=== PATIENT | female | born 1990 | race Caucasian/White ===

== ENCOUNTER 2019-10-04 22:31 | Emergency (ER) | payer MEDICAID ==
[2019-10-04] MEDS ORDERED: IBUPROFEN 400 MG TAB ONE (23:16)
[2019-10-04] MEDS ORDERED: IBUPROFEN 200 MG TAB PO ONE (23:16)
--- NOTE | 2019-10-04 23:25 | EDPHYS ---
Physician Documentation [facility] Name: Cleopatra Gomez Age: 29 yrs Sex: Female : 1990 Arrival Date: 10/04/2019 Time: 22:34 Bed 6 Private MD: ED Physician Alexx Martinez HPI: 10/03 22:48 This 29 yrs old Female presents to ER via Unassigned with complaints of Knee la1 Injury. 22:48 Onset: The symptoms/episode began/occurred just prior to arrival. The patient has not la1 experienced similar symptoms in the past. The patient has not recently seen a physician. pt had a injury to the left knee. Historical: - Allergies: 22:53 No Known Allergies; ea - Home Meds: 22:53 levothyroxine oral [Active]; Metformin Oral [Active]; ea - PMHx: 22:53 Osteogenisis Imperfecta; Diabetes - NIDDM; ea - PSHx: 22:53 Right knee surgery; ea - Immunization history:: Adult Immunizations up to date. - Social history:: Smoking status: Patient denies any tobacco usage or history of. ROS: 23:01 Constitutional: Negative for fever, chills, and weight loss, Eyes: Negative for injury, la1 pain, redness, and discharge, ENT: Negative for injury, pain, and discharge, Neck: Negative for injury, pain, and swelling, Cardiovascular: Negative for chest pain, palpitations, and edema, Respiratory: Negative for shortness of breath, cough, wheezing, and pleuritic chest pain, Abdomen/GI: Negative for abdominal pain, nausea, vomiting, diarrhea, and constipation, Back: Negative for injury and pain, Skin: Negative for injury, rash, and discoloration. 23:01 MS/extremity: Positive for pain, of the left knee. Exam: 23:01 Constitutional: This is a well developed, well nourished patient who is awake, alert, la1 and in no acute distress. Head/Face: Normocephalic, atraumatic. Cardiovascular: No pulse deficits. Respiratory: No increased work of breathing, Back: No spinal tenderness. No costovertebral tenderness. Full range of motion. Skin: Warm, dry with normal turgor. Normal color with no rashes, no lesions, and no evidence of cellulitis. MS/ Extremity: Pulses equal, no cyanosis. Neurovascular intact. Full, normal range of motion. Vital Signs: 22:47 BP 142 / 89; Pulse 110; Resp 18; Temp 97.6; Pulse Ox 98% on R/A; Weight 105.69 kg; ea Height 4 ft. 11 in. (149.86 cm); Pain 9/10; 23:33 BP 117 / 68; Pulse 87; Resp 18; Pulse Ox 100% on R/A; ea 22:47 Body Mass Index 47.06 (105.69 kg, 149.86 cm) ea MDM: 22:39 Patient medically screened. la1 23:23 Data reviewed: vital signs, nurses notes, radiologic studies, and as a result, I will la1 discharge patient. Test interpretation: by ED physician or midlevel provider: plain radiologic studies, no obvious fracture or dislocation, not applicable, none. Counseling: I had a detailed discussion with the patient and/or guardian regarding: the historical points, exam findings, and any diagnostic results supporting the discharge/admit diagnosis, radiology results, the need for outpatient follow up, a orthopedic surgeon, to return to the emergency department if symptoms worsen or persist or if there are any questions or concerns that arise at home. Special discussion: Based on the history and exam findings, there is no indication for further emergent testing or inpatient evaluation. I discussed with the patient/guardian the need to see the orthopedic surgeon for further evaluation of the symptoms. 10/03 22:45 Order name: Knee Left 3 View XRAY la1 10/03 23:25 Order name: Patrick wrap-joint; Complete Time: 23:46 la1 Administered Medications: 23:22 Drug: Motrin 600 mg Route: PO; ea 23:46 Follow up: Response: No adverse reaction ea Disposition: 10/04 06:54 Co-signature as Attending Physician, Alexx Martinez MD I agree with the assessment and tw4 plan of care. Disposition: 10/04/19 23:24 Discharged to Home. Impression: Pain in left knee. - Condition is Stable. - Discharge Instructions: Joint Pain, Musculoskeletal Pain, RICE for Routine Care of Injuries, Knee Pain. - Medication Reconciliation Form, Thank You Letter form. - Follow up: Private Physician; When: 2 - 3 days; Reason: Recheck today's complaints, Re-evaluation by your physician. - Problem is new. - Symptoms are unchanged. Signatures: Dispatcher [employer] EDToño Griffin, LIBRARY HISTORIAN-C LIBRARY HISTORIAN-Cla1 Dea Howell, RN RN Alexx Aguirre MD MD tw4 Corrections: (The following items were deleted from the chart) 10/03 23:48 23:24 10/04/2019 23:24 Discharged to Home. Impression: Pain in left knee. Condition is ea Stable. Forms are Medication Reconciliation Form, Thank You Letter, Antibiotic Education, Prescription Opioid Use. Follow up: Private Physician; When: 2 - 3 days; Reason: Recheck today's complaints, Re-evaluation by your physician. Problem is new. Symptoms are unchanged. la1
--- NOTE | 2019-10-04 23:25 | ER ---
Nurse's Notes [facility] Name: Cleopatra Gomez Age: 29 yrs Sex: Female : 1990 Arrival Date: 10/04/2019 Time: 22:34 Bed 6 Private MD: Diagnosis: Pain in left knee Presentation: 10/03 22:47 Chief complaint: Patient states: Pt reports she was taking care of her niece, slipped ea on some toys on the floor and fell onto her left knee. Pt reports it is painful when she puts weight on it. Coronavirus screen: The patient has NOT traveled to a country currently being monitored by the [facility] within the last 14 days. Ebola Screen: No symptoms or risks identified at this time. Initial Sepsis Screen: Does the patient meet any 2 criteria? HR > 90 bpm. Does the patient have a suspected source of infection? No. Patient's initial sepsis screen is negative. Risk Assessment: Do you want to hurt yourself or someone else? Patient reports no desire to harm self or others. 22:47 Method Of Arrival: Ambulatory ea 22:47 Acuity: MODESTO 4 ea Triage Assessment: 22:54 General: Appears in no apparent distress. Behavior is appropriate for age. Pain: ea Complains of pain in left knee. Neuro: Level of Consciousness is awake, alert, obeys commands, Oriented to person, place, time, situation. Respiratory: Airway is patent Respiratory effort is even, unlabored, Respiratory pattern is regular, symmetrical. Musculoskeletal: Circulation, motion, and sensation intact. Historical: - Allergies: 22:53 No Known Allergies; ea - Home Meds: 22:53 levothyroxine oral [Active]; Metformin Oral [Active]; ea - PMHx: 22:53 Osteogenisis Imperfecta; Diabetes - NIDDM; ea - PSHx: 22:53 Right knee surgery; ea - Immunization history:: Adult Immunizations up to date. - Social history:: Smoking status: Patient denies any tobacco usage or history of. Screenin:51 Abuse screen: Denies threats or abuse. Nutritional screening: No deficits noted. ea Tuberculosis screening: No symptoms or risk factors identified. Fall Risk None identified. Assessment: 23:32 Reassessment: Reassessment: Patient and/or family updated on plan of care and expected ea duration. Pain level reassessed. Patient is alert, oriented x 3, equal unlabored respirations, skin warm/dry/pink. 23:47 Reassessment: Patient and/or family updated on plan of care and expected duration. Pain ea level reassessed. Patient is alert, oriented x 3, equal unlabored respirations, skin warm/dry/pink. Discharge instruction given to patient, verbalized the understanding of instruction. Pt left ED, pt tolerating well. Vital Signs: 22:47 BP 142 / 89; Pulse 110; Resp 18; Temp 97.6; Pulse Ox 98% on R/A; Weight 105.69 kg; ea Height 4 ft. 11 in. (149.86 cm); Pain 9/10; 23:33 BP 117 / 68; Pulse 87; Resp 18; Pulse Ox 100% on R/A; ea 22:47 Body Mass Index 47.06 (105.69 kg, 149.86 cm) ea ED Course: 22:34 Patient arrived in ED. es 22:35 Toño Ochoa FNP-C is [facility]. la1 22:35 Alexx Martinez MD is Attending Physician. la1 22:40 Dea Howell RN is Primary Nurse. ea 22:51 Triage completed. ea 22:51 Arm band placed on right wrist. Patient placed in an exam room, on a stretcher, on ea pulse oximetry. 22:51 Patient has correct armband on for positive identification. Bed in low position. Call ea light in reach. Side rails up X 1. 23:17 Knee Left 3 View XRAY In Process Unspecified. EDMS 23:32 No provider procedures requiring assistance completed. Patient did not have IV access ea during this emergency room visit. Administered Medications: 23:22 Drug: Motrin 600 mg Route: PO; ea 23:46 Follow up: Response: No adverse reaction ea Outcome: 23:24 Discharge ordered by . la1 23:46 Discharged to home ambulatory. ea 23:46 Condition: stable 23:46 Discharge instructions given to patient, Instructed on discharge instructions, follow up and referral plans. Demonstrated understanding of instructions, follow-up care. 23:48 Patient left the ED. ea Signatures: Dispatcher [employer] EDID Kimmy Atkinson Toño Ochoa FNP-C ADOBE CQ DEVELOPER-Cla1 Dea Howell RN RN ea Corrections: (The following items were deleted from the chart) 23:32 22:56 Reassessment: chiara guadarrama
[2019-10-04 23:54] VITALS: TEMP 97.6
[2019-10-04 23:55] VITALS: BP 117/68; O2SAT 100
--- NOTE | 2019-10-05 09:02 | RAD REPORT ---
EXAM DESCRIPTION: RAD - Knee Left 3 View - 10/04/2019 11:19 pm CLINICAL HISTORY: PAIN, slip and fall, knee injury COMPARISON: Knee Left 3 View dated 12/29/2015 FINDINGS: No fracture, dislocation or periosteal reaction.No joint effusion seen. No joint space wai rowing. No soft tissue abnormality. IMPRESSION: No acute bone or joint finding. No significant change seen from the 2016 study. Clinical concerns for internal derangement or occult bony injury could be further assessed with MR im aging.
== END 2019-10-04 23:48 | disposition home or self-care (01) ==
LOC: ER 22:31
DX: M25.562 Pain in left knee (principal); W01.0XXA Fall on same level from slipping, tripping and stumbling without subsequent striking against object, initial encounter; Y93.9 Activity, unspecified; Y92.9 Unspecified place or not applicable; E11.9 Type 2 diabetes mellitus without complications
CPT/HCPCS: 99283

== ENCOUNTER 2019-10-22 19:43 | Emergency (ER) | payer MEDICAID ==
--- OUTSIDE RECORDS SUMMARY | 2019-10-22 19:45 | XMS REPORT ---
:1990 [facility] Address [address] [place] [address] Dr. [address] [place] [address] Care Team Providers Name Role Phone Unavailable Unavailable Unavailable Problems This patient has no known problems. Allergies, Adverse Reactions, Alerts This patient has no known allergies or adverse reactions. Medications This patient has no known medications.
--- OUTSIDE RECORDS SUMMARY | 2019-10-22 19:46 | XMS REPORT | Summary of Care ---
:1990 Author Organization [facility] Address [address] [place] [id number] Care Team Providers Name Role Phone Toño Ochoa Primary Care Provider Milagros Guillory RN Unavailable Unavailable Kale Valenzuela MD Unavailable Reason for Referral Radiology Services (Routine) Status Reason Specialty Diagnoses / Referred By Referred To Procedures Contact Contact New Request Diagnostic Diagnoses Closed fracture of proximal radius/ulna, left, initial encounter Kale Valenzuela Radiology Procedures XR WRIST <3 VW LEFT MD Deann [address] [place] [address] [place] [address] Reason for Visit Reason Comments Follow-up 1 week follow up visit closed fx of proximal radius/ulna left DOI: Encounter Details Date Type Department Care Team Description 09/22/2019 Office Visit [facility] Orthopaedic Hollis Matthew S, Closed fracture of Surgery- [place] [facility] proximal radius/ulna, [address], initial [address] [place] [address] encounter (Primary Dx) [place] [address] [place], [place] [phone] Allergies No Known Allergiesdocumented as of this encounter (statuses as of 09/23/2019) Medications Medication Sig Dispensed Refills Start Date End Date Status levothyroxine 50 mcg Take 50 mcg by 0 Active tablet mouth every morning. metformin ER 500 mg 24 Take 500 mg by 0 Active hr tablet mouth daily with breakfast. escitalopram oxalate 5 Take 5 mg by 0 Active mg tablet mouth daily. acetaminophen-codeine Take 1 tablet 20 tablet 0 10/10/2017 Active (TYLENOL-CODEINE #3) by mouth every 300-30 mg tablet 4 (four) hours as needed for Pain (scale 4-6). acetaminophen 325 mg Take 325 mg by 0 Active tablet mouth. ibuprofen 200 mg tablet Take 200 mg by 0 Active mouth. OXcarbazepine 150 mg 0 09/03/2019 Active tablet levothyroxine 125 mcg Take 125 mcg by 0 07/11/2019 10/09/2019 Active tablet mouth. documented as of this encounter (statuses as of 09/23/2019) Active Problems Problem Noted Date Trauma 10/29/2016 Closed fracture of distal end of right radius 10/29/2016 Morbid obesity with body mass index of 40.0-49.9 10/29/2016 Morbid obesity with body mass index of 50 or higher 10/29/2016 Left leg pain 12/30/2015 Right knee pain 06/11/2015 Right elbow pain 06/11/2015 documented as of this encounter (statuses as of 09/23/2019) Immunizations Name Administration Dates Next Due Influenza Virus Vaccine Quad IM 3+ YRS 10/29/2016 documented as of this encounter Social History Tobacco Use Types Packs/Day Years Used Date Current Some Day Smoker Cigarettes Smokeless Tobacco: Never Used Comments: Occasional Smoker Alcohol Use Drinks/Week oz/Week Comments Yes 0 Standard drinks or equivalent 0.0 Occasional Drinker Sex Assigned at Date Recorded Not on file Job Start Date Occupation Industry Not on file Not on file Not on file Travel History Travel Start Travel End No recent travel history available. 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 Pulse 96 09/22/2019 1:44 PM TIPPLE MECHANIC Temperature - - Respiratory Rate 18 09/22/2019 1:44 PM TIPPLE MECHANIC Oxygen Saturation - - Inhaled Oxygen Concentration - - Weight 95.3 kg (210 lb) 09/22/2019 1:44 PM TIPPLE MECHANIC Height 149.9 cm (4' 11") 09/22/2019 1:44 PM TIPPLE MECHANIC Body Mass Index 42.41 09/22/2019 1:44 PM TIPPLE MECHANIC documented in this encounter Progress Notes Hollis Matthew, PAC - 09/22/2019 1:45 PM CST Cleopatra Gomez is a 29 year old female Chief Complaint Patient presents with Follow-up 1 week follow up visit closed fx of proximal radius/ulna left DOI:09/11/19 Vitals: 09/22/19 1344 BP: (!) 159/77 BP Location: Right arm Patient Position: Sitting BP CUFF SIZE: Adult Medium Pulse: 96 Resp: 18 Weight: 210 lb (95.3 kg) Height: 4' 11" (1.499 m) [employer] [id number] - [place], [place] - [address] [facility] All Vitals taken, allergies and all medications reviewed, fall risk assessed. Pain level 0/10. ZHANNA SOTO MA 09/22/2019 1:49 PM Cleopatra Gomez is a 29 year old female. Here for follow-up on left distal radius fracture she arrived with her sugar tong splint on using her arm sling Here for left wrist injury 09/11/2019 She slipped and landed on her left outstretched hand on the mop floor at home, she was seen at [facility] they placed her in a sugar tong splint she was diagnosed with a radius and ulna fracture. No disc available for review today, she was issued an arm sling which she is not wearing today. Her pain is 8/10 in intensity. She had a previous left wrist fracture that was treated surgically by Dr. Valenzuela. Allergies Cleopatra has No Known Allergies. Medications Outpatient Medications Prior to Visit Medication Sig Dispense Refill acetaminophen 325 mg tablet Take 325 mg by mouth. ibuprofen 200 mg tablet Take 200 mg by mouth. levothyroxine 125 mcg tablet Take 125 mcg by mouth. OXcarbazepine 150 mg tablet acetaminophen-codeine (TYLENOL-CODEINE #3) 300-30 mg tablet Take 1 tablet by mouth every 4 (four) hours as needed for Pain (scale 4-6). 20 tablet 0 escitalopram oxalate 5 mg tablet Take 5 mg by mouth daily. levothyroxine 50 mcg tablet Take 50 mcg by mouth every morning. metformin ER 500 mg 24 hr tablet Take 500 mg by mouth daily with breakfast. Facility-Administered Medications Prior to Visit Medication Dose Route Frequency Provider Last Rate Last Dose sodium chloride 0.9 % irrigation solution PRN Kale Valenzuela MD 1, 000 mL at 09/24/17 0939 Histories Past Medical History: Diagnosis Date Anxiety DM (diabetes mellitus) Left leg pain 12/30/2015 Osteogenesis imperfecta Past Surgical History: Procedure Laterality Date ANKLE HARDWARE REMOVAL Right ANKLE ORIF Right DISTAL RADIUS ORIF Left 09/24/2017 Surgeon: Kale Valenzuela MD; [place] [facility] [place] Social History Socioeconomic History Marital status: Single Spouse name: Not on file Number of children: Not on file Years of education: Not on file Highest education level: Not on file Occupational History Not on file Social Needs Financial resource strain: Not on file Food insecurity: Worry: Not on file Inability: Not on file Transportation needs: Medical: Not on file Non-medical: Not on file Tobacco Use Smoking status: Current Some Day Smoker Types: Cigarettes Smokeless tobacco: Never Used Tobacco comment: Occasional Smoker Substance and Sexual Activity Alcohol use: Yes Alcohol/week: 0.0 standard drinks Comment: Occasional Drinker Drug use: No Sexual activity: Never Lifestyle Physical activity: Days per week: Not on file Minutes per session: Not on file Stress: Not on file Relationships Social connections: Talks on phone: Not on file Gets together: Not on file Attends advent service: Not on file Active member of club or organization: Not on file Attends meetings of clubs or organizations: Not on file Relationship status: Not on file Intimate partner violence: Fear of current or ex partner: Not on file Emotionally abused: Not on file Physically abused: Not on file Forced sexual activity: Not on file Other Topics Concern Not on file Social History Narrative Not on file Family History Problem Relation Age of Onset No Significant Medical Problems NoFHx Review of Systems Constitutional: Negative. HENT: Negative. Eyes: Negative. Respiratory: Negative. Breasts: Negative. Cardiovascular: Negative. Gastrointestinal: Negative. Genitourinary: Negative. Musculoskeletal: Positive for joint swelling. Skin: Negative. Neurological: Negative. Psychiatric/Behavioral: Negative. Endocrine: Endocrine negative Vital Signs Ht 59" (149.9 cm) | Wt 95.3 kg (210 lb) | BMI 42.41 kg/m Physical Exam Musculoskeletal: Physical Exam Constitutional: oriented to person, place, and time. appears well-developed and well-nourished. HENT: Head: Normocephalic and atraumatic. Right Ear: External ear normal. Left Ear: External ear normal. Eyes: Conjunctivae are normal. Neck: Normal range of motion. No strabismus Neck supple. Cardiovascular: Normal rate and regular rhythm. Pulmonary/Chest: Normal respiratory rate equal chest rise and fall in no apparent distress Abdominal: Abdomen nondistended nontender Neurological: alert and oriented to person, place, and time. No asymmetry Skin: Skin is warm and dry. Psychiatric: normal mood and affect. behavior is normal. Judgment and thought content normal. Nursing note and vitals reviewed. Splint removed no deformity, swelling adequately resolved for casting today Assessment/Plan Diagnosis 1. Closed fracture of proximal radius/ulna, left, initial encounter XR WRIST & lt;3 VW LEFT She was placed in a red fiberglass short arm cast by right Tiff GARCÍA she will wear her arm sling for the first 4 weeks and she will follow-up at 6 weeks from the date of fracture. Instructed patient to keep cast dry. Can be cleaned with a damp (not wet) clothe if it becomes dirty. If cast becomes wet use a hand-held dryer on a cool setting careful not to burn themselves. Never put anything into the cast. Objects can break the skin and can cause an infection or the padding can become bunched and form a sore in the area of the skin and can become infected. Wash any skin not covered by your cast with soap and water every day. When your take a bath or shower, securely wrap the cast in plastic so it doesn't get wet. Sponge baths may be necessary if the cast is big. Instructed to call the office if there is severe pain or swelling that doesn't go away with medication, elevation or rest. Come in if there is numbness or "pins and needles" sensation under the cast. An exposed body area around the cast (such as toes or fingers) becomes cold, numb or bluish. Inability to move toes or fingers on the casted side, compared to the other side. Skin irritation or rash around the cast edges. Cast becomes broken, cracked, loose, soft, or melted. If any kind of object gets stuck inside thecast. Plan documented in this encounter Plan of Treatment Date Type Specialty Care Team Description 10/23/2019 Office Visit Orthopedic Surgery Hollis Matthew, PAC [address] [place] [phone] Health Maintenance Due Date Last Done Comments VARICELLA VACCINES (1 of 2 - 2-dose childhood series) 1989 PNEUMOCOCCAL 0-64 YEARS COMBINED SERIES (1 of 1 - 1994 PPSV23) DTaP,Tdap,and Td Vaccines (1 - Tdap) 1999 PAP SMEAR 2009 INFLUENZA VACCINE (#1) 2019 10/29/2016 documented as of this encounter Implants Implanted Type Area Electrical Journeyman Device Shelf Model / Identifier Expiration Date Serial / Lot K-Wire .062 WIRE Left: Wrist Biomet [id number] / Implanted: Qty: 3 on 09/24/2017 by Kale Valenzuela MD at [facility] [id number] / [id number] documented as of this encounter Results XR WRIST <3 VW LEFT (09/22/2019 1:53 PM TIPPLE MECHANIC) Specimen Narrative Performed At Transverse fracture distal radius is in appropriate alignment no volar or PACS dorsal angulation. Performing Organization Address City/State/Zipcode Phone Number PACS documented in this encounter Visit Diagnoses Diagnosis Closed fracture of proximal radius/ulna, left, initial encounter - Primary documented in this encounter Insurance Payer Benefit Plan / Subscriber ID Effective Phone Address Type Group Dates IOANA TRIPLETT xxxxxxxxx 2015-[facility] [address] Medicaid [place] [id number] MANAGED MEDICAID [place], [place] (Work) documented as of this encounter
--- OUTSIDE RECORDS SUMMARY | 2019-10-22 19:46 | XMS REPORT | Summary of Care ---
:1990 Author Organization [facility] Address [address] [place] [address] Care Team Providers Name Role Phone Toño Ochoa Primary Care Provider Milagros Guillory RN Unavailable Unavailable Kale Valenzuela MD Unavailable Reason for Visit Reason Comments Wrist Pain Left wrist injury DOI:09/11/19 Encounter Details Date Type Department Care Team Description 09/12/2019 Office Visit [facility] Orthopaedic Kale Valenzuela MD [address] [place] [place] [address] [place] [address] Closed fracture of Surgery- Hollis Collado S, PAC [address] [place] [address] proximal radius/ulna, [address], initial [address] encounter (Primary Dx) [place] [address] Allergies No Known Allergiesdocumented as of this encounter (statuses as of 09/12/2019) Medications Medication Sig Dispensed Refills Start Date [...] as of this encounter (statuses as of 09/12/2019) Active Problems Problem Noted Date Trauma 10/29/2016 Closed fracture of distal end of right radius 10/29/2016 Morbid obesity with body mass index of 40.0-49.9 10/29/2016 Morbid obesity with body mass index of 50 or higher 10/29/2016 Left leg pain 12/30/2015 Right knee pain 06/11/2015 Right elbow pain 06/11/2015 documented as of this encounter (statuses as of 09/12/2019) Immunizations Name Administration Dates Next Due Influenza [...] Sign Reading Time Taken Comments Blood Pressure 134/84 09/12/2019 10:50 AM DAY CARE CENTER DIRECTOR Pulse 93 09/12/2019 10:50 AM DAY CARE CENTER DIRECTOR Temperature - - Respiratory Rate 18 09/12/2019 10:50 AM DAY CARE CENTER DIRECTOR Oxygen Saturation - - Inhaled Oxygen Concentration - - Weight 95.3 kg (210 lb) 09/12/2019 10:50 AM DAY CARE CENTER DIRECTOR Height 149.9 cm (4' 11") 09/12/2019 10:50 AM DAY CARE CENTER DIRECTOR Body Mass Index 42.41 09/12/2019 10:50 AM DAY CARE CENTER DIRECTOR documented in this encounter Progress Notes Hollis Matthew S, PAC - 09/12/2019 11:00 AM CST Cleopatra Gomez is a 29 year old female Chief Complaint Patient presents with Wrist Pain Left wrist injury DOI:09/11/19 Vitals: 09/12/19 1050 BP: 134/84 BP Location: Left arm Patient Position: Sitting BP CUFF SIZE: Adult Medium Pulse: 93 Resp: 18 Weight: 95.3 kg (210 lb) Height: 59" (149.9 cm) [facility] - [place], [place] - [address] [facility] Incident occurred: 09/11/19 Incident location: home Injury mechanism: patient slipped and fell landing in her arm Pain location: left wrist DME status: wrap Radiology status: [facility] but did not bring xrays was not given any All Vitals taken, allergies and all medications reviewed, fall risk assessed. Pain level 5/10. ZHANNA SOTO MA 09/12/2019 10:55 AM Cleopatra Gomez is a 29 year old female. Here for left wrist injury 09/11/2019 She slipped and landed on her left outstretched hand on the mop floor at home, she was seen at [facility] they placed her in a sugar tong [...] Prior to Visit Medication Sig Dispense Refill levothyroxine 125 mcg tablet Take 125 mcg by mouth. acetaminophen 325 mg tablet Take 325 mg by mouth. ibuprofen 200 mg tablet Take 200 mg by mouth. OXcarbazepine 150 mg tablet acetaminophen-codeine [...] Left 09/24/2017 Surgeon: Kale Valenzuela MD; Location: [facility] Social History Socioeconomic History Marital status: Single [...] file Gets together: Not on file Attends oriental orthodox service: Not on file Active member of [...] Psychiatric/Behavioral: Negative. Endocrine: Endocrine negative Vital Signs BP 134/84 (BP Location: Left arm, Patient Position: Sitting, BP CUFF SIZE: Adult Medium) | Pulse 93 | Resp 18 | Ht 59" (149.9 cm) | Wt 95.3 kg (210 lb) | BMI 42.41 kg/m Physical Exam Physical Exam Constitutional: oriented to person, place, [...] content normal. Nursing note and vitals reviewed. She has a sugar tong splint on her left wrist that is adequately applied neurovascular function intact distally Assessment/Plan Diagnosis 1. Closed fracture of proximal radius/ulna, left, initial encounter Plan Continue sugar tong splint she should wear her arm sling we will follow-up on Sunday at 1:30 they will return with the x-ray disc for us to review at that time. documented in this encounter Plan of Treatment Health Maintenance Due Date Last Done Comments VARICELLA VACCINES (1 of 2 - 1989 2-dose childhood series) DTaP,Tdap,and Td Vaccines (1 - 1999 Tdap) PAP SMEAR 2009 INFLUENZA VACCINE (#1) 2019 10/29/2016 PNEUMOCOCCAL 0-64 YEARS COMBINED Aged Out No longer eligible based on SERIES patient's age to complete this topic documented as of this encounter Implants Implanted Type Area Pharmacologist Device Shelf Model / Identifier Expiration Date Serial / Lot K-Wire .062 WIRE Left: Wrist [employer]omet [id number] / Implanted: Qty: 3 on 09/24/2017 by Kale Valenzuela MD at [facility] [id number] / [id number] documented as of this encounter Results Not on filedocumented in this encounter Visit Diagnoses Diagnosis Closed fracture of proximal radius/ulna, left, initial encounter - Primary documented in this encounter Insurance Payer Benefit Plan / Subscriber ID Effective Phone Address Type Group Dates IOANA TRIPLETT xxxxxxxxx 2015-[place] Medicaid [place] [id number] MANAGED MEDICAID [place], [place] (Work) documented as of this encounter
--- OUTSIDE RECORDS SUMMARY | 2019-10-22 19:46 | XMS REPORT | Summary of Care ---
:1990 Author Organization [facility] Address [address] [place] [address] Care Team Providers Name Role Phone Toño Ochoa Primary Care Provider Milagros Guillory RN Unavailable Unavailable Kale Valenzuela MD Unavailable Encounter Details Date Type Department Care Team Description 09/17/2019 Orders Only [facility] Doctor Unassigned, No [address] [facility] Name [address] [address] Allergies No Known Allergiesdocumented as of this encounter (statuses as of 09/17/2019) Medications Medication Sig Dispensed Refills Start Date [...] as of this encounter (statuses as of 09/17/2019) Active Problems Problem Noted Date Trauma 10/29/2016 Closed fracture of distal end of right radius 10/29/2016 Morbid obesity with body mass index of 40.0-49.9 10/29/2016 Morbid obesity with body mass index of 50 or higher 10/29/2016 Left leg pain 12/30/2015 Right knee pain 06/11/2015 Right elbow pain 06/11/2015 documented as of this encounter (statuses as of 09/17/2019) Immunizations Name Administration Dates Next Due Influenza [...] of this encounter Last Filed Vital Signs Not on filedocumented in this encounter Plan of Treatment Date Type Specialty Care Team Description 09/22/2019 Office Visit Orthopedic Surgery Hollis Matthew, PAC [address] [place] [address] Health Maintenance Due Date Last Done Comments VARICELLA VACCINES (1 of 2 - 2-dose childhood series) 1989 PNEUMOCOCCAL 0-64 YEARS COMBINED SERIES (1 of 1 - 1994 PPSV23) DTaP,Tdap,and Td Vaccines (1 - Tdap) 1999 PAP SMEAR 2009 INFLUENZA VACCINE (#1) 2019 10/29/2016 documented as of this encounter Implants Implanted Type Area Supervisor Cleaning And Annealing Device Shelf Model / Identifier Expiration Date Serial / Lot K-Wire .062 WIRE Left: Wrist Biomet [id number] / Implanted: Qty: 3 on 09/24/2017 by Kale Valenzuela MD at [facility] [id number] / [id number] documented as of this encounter Procedures Procedure Name Priority Date/Time Associated Diagnosis Comments EXTERNAL PROVIDER Routine 09/17/2019 12:01 AM SAIL FINISHER MACHINE RECORDS documented in this encounter Results Not on filedocumented in this encounter Insurance Payer Benefit Plan / Subscriber ID Effective Phone Address Type Group Dates IOANA TRIPLETT xxxxxxxxx 2015-[place] [address] [place] MEDICA[place] documented as of this encounter
--- OUTSIDE RECORDS SUMMARY | 2019-10-22 19:46 | XMS REPORT | Summary of Care ---
:1990 Author Organization [facility] Address [address] [place] [address] Care Team Providers Name Role Phone Toño Ochoa Primary Care Provider Milagros Guillory RN Unavailable Unavailable Kale Valenzuela MD Unavailable Encounter Details Date Type Department Care Team Description 09/22/2019 [facility] [address] [place] [address] [place] [address] [place], [place] [phone] [address] Allergies No Known Allergiesdocumented as of [...] Visit Orthopedic Surgery Hollis Matthew, PAC [address] [place] [phone] Health Maintenance Due Date Last Done Comments VARICELLA VACCINES (1 of 2 - 2-dose childhood series) 1989 PNEUMOCOCCAL 0-64 YEARS COMBINED SERIES (1 of 1 - 1994 PPSV23) DTaP,Tdap,and Td Vaccines (1 - Tdap) 1999 PAP SMEAR 2009 INFLUENZA VACCINE (#1) 2019 10/29/2016 documented as of this encounter Implants Implanted Type Area Project Scheduler Device Shelf Model / Identifier Expiration Date Serial / Lot K-Wire .062 WIRE Left: Wrist Biomet [id number] / Implanted: Qty: 3 on 09/24/2017 by Kale Valenzuela MD at [facility] [id number] / [id number] documented as of this encounter Procedures Procedure Name Priority Date/Time Associated Diagnosis Comments XR WRIST <3 VW LEFT Routine 09/22/2019 1:53 PM Closed fracture of Results for this IN FLIGHT TECHNICIAN proximal procedure are in radius/ulna, left, the results initial encounter section. documented in this encounter Results XR WRIST <3 VW LEFT (09/22/2019 1:53 PM IN FLIGHT TECHNICIAN) Specimen Narrative Performed At Transverse fracture distal radius is in appropriate alignment no volar or PACS dorsal angulation. Performing Organization Address City[facility] Phone Number [facility]ACS documented in this encounter Visit Diagnoses Diagnosis Closed fracture of proximal radius/ulna, left, initial encounter documented in this encounter Insurance Payer Benefit Plan / Subscriber ID Effective Phone Address Type Group Dates IOANA TRIPLETT xxxxxxxxx 2015-[address] [place] [id number] [place] MEDICAID [place], [place] [phone] [id number] (Work) documented as of this encounter
--- OUTSIDE RECORDS SUMMARY | 2019-10-22 19:46 | XMS REPORT | Summary of Care ---
:1990 Author Organization [facility] Address [address] [place] [address] Care Team Providers Name Role Phone Toño Ochoa Primary Care Provider Milagros Guillory RN Unavailable Unavailable Kale Valenzuela MD Unavailable Reason for Visit Reason Comments Wrist Pain Left wrist injury DOI:09/11/19 Encounter Details Date Type Department Care Team Description 09/12/2019 Office Visit [facility] Orthopaedic Kale Valenzuela MD [address] [place] [address] [place] [address] Closed fracture of Surgery- Hollis Collado S, PAC [address] [place] [address] proximal radius/ulna, [address], initial [address] encounter (Primary Dx) [place] [address] Allergies No Known Allergiesdocumented as [...] Comments Blood Pressure 134/84 09/12/2019 10:50 AM EXTRUDING PRESS OPERATOR Pulse 93 09/12/2019 10:50 AM EXTRUDING PRESS OPERATOR Temperature - - Respiratory Rate 18 09/12/2019 10:50 AM EXTRUDING PRESS OPERATOR Oxygen Saturation - - Inhaled Oxygen Concentration - - Weight 95.3 kg (210 lb) 09/12/2019 10:50 AM EXTRUDING PRESS OPERATOR Height 149.9 cm (4' 11") 09/12/2019 10:50 AM EXTRUDING PRESS OPERATOR Body Mass Index 42.41 09/12/2019 10:50 AM EXTRUDING PRESS OPERATOR documented in this encounter Progress Notes Hollis [...] 59" (149.9 cm) [facility] - [place], [place] - [address] [facility] Incident occurred: 09/11/19 Incident location: home Injury mechanism: patient slipped and fell landing in her arm Pain location: left wrist DME status: wrap Radiology status: [facility] but did not bring xrays was not given any All Vitals taken, allergies and all medications reviewed, fall risk assessed. Pain level 5/10. ZHANNA SOTO MA 09/12/2019 10:55 AM Cleopatra Gomez is a 29 year old female. Here for left wrist injury 09/11/2019 She slipped and landed on her left outstretched hand on the mop floor at home, she was seen at [facility] they placed her in a sugar tong [...] Left 09/24/2017 Surgeon: Kale Valenzuela MD; Location: [facility] Social History Socioeconomic History Marital status: Single [...] file Gets together: Not on file Attends scientologist service: Not on file Active member of [...] of this encounter Implants Implanted Type Area Underground Mine Superintendent Device Shelf Model / Identifier Expiration Date Serial / Lot K-Wire .062 WIRE Left: Wrist Biomet [id number] / Implanted: Qty: 3 on 09/24/2017 by Kale Valenzuela MD at [facility] [id number] / [id number] documented as of this encounter Results Not on filedocumented in this encounter Visit Diagnoses Diagnosis Closed fracture of proximal radius/ulna, left, initial encounter - Primary documented in this encounter Insurance Payer Benefit Plan / Subscriber ID Effective Phone Address Type Group Dates IOANA TRIPLETT xxxxxxxxx 2015-Ta [place] Medicaid [place] [id number] MANAGED MEDICAID [place], [place] (Work) documented as of this encounter
--- OUTSIDE RECORDS SUMMARY | 2019-10-22 19:47 | XMS REPORT | Summary of Care ---
:1990 Author Organization [facility] Address [address] [place] [address] Care Team Providers Name Role Phone Toño Ochoa Primary Care Provider Milagros Guillory RN Unavailable Unavailable Kale Valenzuela MD Unavailable Reason for Referral Radiology Services (Routine) Status Reason Specialty Diagnoses / Referred By Referred To Procedures Contact Contact New Request Diagnostic Diagnoses Closed fracture of proximal radius/ulna, left, initial encounter Kale Valenzuela Radiology Procedures XR WRIST <3 VW LEFT MD Deann [address] [place] [address] [place] [address] Reason for Visit Reason Comments Follow-up 1 week follow up visit closed fx of proximal radius/ulna left DOI: Encounter Details Date Type Department Care Team Description 09/22/2019 Office Visit [facility] Orthopaedic Hollis Matthew S, Closed fracture of Surgery- [facility] proximal radius/ulna, [address], initial [address] encounter (Primary Dx) [place] [address] [place], [place] [phone] [address] Allergies No Known Allergiesdocumented as of [...] Comments Blood Pressure 159/77 09/22/2019 1:44 PM SALESPERSON JEWELRY Pulse 96 09/22/2019 1:44 PM SALESPERSON JEWELRY Temperature - - Respiratory Rate 18 09/22/2019 1:44 PM SALESPERSON JEWELRY Oxygen Saturation - - Inhaled Oxygen Concentration - - Weight 95.3 kg (210 lb) 09/22/2019 1:44 PM SALESPERSON JEWELRY Height 149.9 cm (4' 11") 09/22/2019 1:44 PM SALESPERSON JEWELRY Body Mass Index 42.41 09/22/2019 1:44 PM SALESPERSON JEWELRY documented in this encounter Progress Notes Hollis [...] (95.3 kg) Height: 4' 11" (1.499 m) [facility] - [place], [place] - [address] [facility] All Vitals taken, allergies and all medications [...] floor at home, she was seen at [facility] they placed her in a sugar [...] Left 09/24/2017 Surgeon: Kale Valenzuela MD; Location: [facility] Social History Socioeconomic History Marital status: Single [...] file Gets together: Not on file Attends nondenominational service: Not on file Active member of [...] Surgery Hollis Matthew, PAC [address] [place] [id number] Health Maintenance Due Date Last Done Comments VARICELLA VACCINES (1 of 2 - 2-dose childhood series) 1989 PNEUMOCOCCAL 0-64 YEARS COMBINED SERIES (1 of 1 - 1994 PPSV23) DTaP,Tdap,and Td Vaccines (1 - Tdap) 1999 PAP SMEAR 2009 INFLUENZA VACCINE (#1) 2019 10/29/2016 documented as of this encounter Implants Implanted Type Area Electrical Plumbing Supervisor Device Shelf Model / Identifier Expiration Date Serial / Lot K-Wire .062 WIRE Left: Wrist Biomet [id number] / Implanted: Qty: 3 on 09/24/2017 by Kale Valenzuela MD at [facility] [id number] / [id number] documented as of this encounter Results XR WRIST <3 VW LEFT (09/22/2019 1:53 PM SALESPERSON JEWELRY) Specimen Narrative Performed At Transverse fracture distal radius is in appropriate alignment no volar or PACS dorsal angulation. Performing Organization Address City/State/Zipcode Phone Number PACS documented in this encounter Visit Diagnoses Diagnosis Closed fracture of proximal radius/ulna, left, initial encounter - Primary documented in this encounter Insurance Payer Benefit Plan / Subscriber ID Effective Phone Address Type Group Dates IOANA TRIPLETT xxxxxxxxx 2015-[facility] [address] [place] [id number] MA[place]GED MEDICAID [place] (Work) documented as of this encounter
--- NOTE | 2019-10-22 20:56 | RAD REPORT ---
EXAM DESCRIPTION: CTSpine Lumbar Wo Con10/22/2019 8:33 pm CLINICAL HISTORY: Back injury with back pain and radiculopathy status post fall COMPARISON: 2016 TECHNIQUE: Computed axial tomography lumbar spine was obtained with coronal and sagittal reconstruct ion. All CT scans are performed using dose optimization technique as appropriate and may include automated exposure control or mA/KV adjustment according to patient size. FINDINGS: Marked acute compression fracture involves the L1 vertebral body with retropulsion of frac ture fragment into the spinal canal resulting in approximately 60-65% narrowing. Fracture also involv es the left lamina of L1 Compression estimated 85% No dislocation Spondylolysis L5 IMPRESSION: Marked acute compression fracture L1 vertebral body Fracture left lamina of L1
[2019-10-22] MEDS ORDERED: HYDROCODONE/APAP 5/325 MG TAB ONE (21:20)
[2019-10-22] MEDS ORDERED: KETOROLAC 30 MG/ML INJ ONE (21:20)
--- NOTE | 2019-10-22 22:14 | ER ---
Nurse's Notes [facility] Name: Cleopatra Gomez Age: 29 yrs Sex: Female : 1990 Arrival Date: 10/22/2019 Time: 19:54 Bed 15 Private MD: Diagnosis: Wedge compression fracture of unspecified lumbar vertebra Presentation: 10/21 19:30 Chief complaint: EMS states: PT [place] the [place] 2 days ago and slipped and fell jb4 on the wet floor. She landed on her bottom and denies LOC. She said she thought the pain would get better but has only gotten worse the past 2 days and now it starts in the middle of her back and radiates to the left hip. Coronavirus screen: Patient denies fever greater than 100.4F, cough, shortness of breath, or difficulty breathing. Ebola Screen: No symptoms or risks identified at this time. Initial Sepsis Screen: Does the patient meet any 2 criteria? HR > 90 bpm. Yes Does the patient have a suspected source of infection? No. Patient's initial sepsis screen is negative. Risk Assessment: Do you want to hurt yourself or someone else? Patient reports no desire to harm self or others. Mechanism of Injury: Fall from standing position. Transition of care: patient was not received from another setting of care. 19:30 Method Of Arrival: EMS: [facility] 19:30 Acuity: [place] 4 jb4 19:30 Onset of symptoms was October 20, 2019. jb4 ROUNDER HAND: 19:30 LMP 10/05/2019 jb4 Historical: - Allergies: 19:30 No Known Allergies; jb4 - Home Meds: 19:30 levothyroxine oral [Active]; Metformin Oral [Active]; anxiety medication [Active]; jb4 - PMHx: 19:30 Osteogenisis Imperfecta; Diabetes - NIDDM; jb4 - PSHx: 19:30 Right knee surgery; right ankle; left wrist; jb4 - Immunization history:: Adult Immunizations up to date. - Social history:: Smoking status: Patient denies any tobacco usage or history of. Screenin:30 Abuse screen: Denies threats or abuse. Nutritional screening: No deficits noted. jb4 Tuberculosis screening: No symptoms or risk factors identified. Fall Risk None identified. Assessment: 19:30 General: Appears in no apparent distress. uncomfortable, Behavior is calm, cooperative, jb4 appropriate for age. Pain: Complains of pain in lumbar area Pain radiates to left hip Pain currently is 10 out of 10 on a pain scale. Quality of pain is described as tearing Pain began 2-3 days ago. Is continuous. Neuro: Level of Consciousness is awake, alert, obeys commands, Oriented to person, place, time, situation. Cardiovascular: Patient's skin is warm and dry. Respiratory: Airway is patent Respiratory effort is even, unlabored, Respiratory pattern is regular, symmetrical. GI: No signs and/or symptoms were reported involving the gastrointestinal system. : No signs and/or symptoms were reported regarding the genitourinary system. EENT: No signs and/or symptoms were reported regarding the EENT system. Derm: Skin is intact, Skin is pink, warm \T\ dry. Musculoskeletal: Circulation, motion, and sensation intact. Range of motion: intact in all extremities. 21:10 Reassessment: Patient appears in no apparent distress at this time. Patient and/or jb4 family updated on plan of care and expected duration. Pain level reassessed. Patient is alert, oriented x 3, equal unlabored respirations, skin warm/dry/pink. 21:51 Reassessment: Patient appears in no apparent distress at this time. Patient and/or jb4 family updated on plan of care and expected duration. Pain level reassessed. Patient is alert, oriented x 3, equal unlabored respirations, skin warm/dry/pink. PT reports has decreased to a 4/10, has contacted her ride. waiting for a rider home prior to discharge. 22:30 Reassessment: Patient appears in no apparent distress at this time. Patient and/or jb4 family updated on plan of care and expected duration. Pain level reassessed. Patient is alert, oriented x 3, equal unlabored respirations, skin warm/dry/pink. PT verbalized understanding of d/c and follow up instructions. Ambulated to wheelchair with steady gait. Assisted to vehicle via wheelchair. D/c'ed home with family. Vital Signs: 19:30 BP 116 / 79; Pulse 104; Resp 18; Temp 97.7(O); Pulse Ox 95% on R/A; Weight 105.23 kg jb4 (R); Height 4 ft. 11 in. (149.86 cm); Pain 10/10; 21:10 BP 93 / 79; Pulse 86; Resp 18; Pulse Ox 96% on R/A; jb4 22:30 BP 119 / 74; Pulse 84; Resp 16; Pulse Ox 98% on R/A; jb4 19:30 Body Mass Index 46.86 (105.23 kg, 149.86 cm) jb4 ED Course: 19:30 Arm band placed on. jb4 19:30 Patient has correct armband on for positive identification. Bed in low position. Call jb4 light in reach. Side rails up X 1. Pulse ox on. NIBP on. 19:54 Patient arrived in ED. jb4 19:56 Alexx Martinez MD is Attending Physician. tw4 19:58 Triage completed. jb4 20:33 CT Lumbar Spine Wo Con In Process Unspecified. EDMS 21:27 Ritchie Tidwell, RN is Primary Nurse. jb4 22:13 Cain Chaparro MD is Referral Physician. tw4 22:13 Kale Velásquez MD is Referral Physician. tw4 22:13 Sanchez Basurto MD is Referral Physician. tw4 22:30 No provider procedures requiring assistance completed. Patient did not have IV access jb4 during this emergency room visit. Administered Medications: 21:10 Drug: [place] 5 mg-325 mg 1 tabs {Note: Rass score 0.} Route: PO; jb4 21:50 Follow up: Response: No adverse reaction; Pain is decreased; RASS: Alert and Calm (0) jb4 21:10 Drug: TORadol 60 mg Route: IM; Site: right gluteus; jb4 21:50 Follow up: Response: No adverse reaction; Pain is decreased jb4 Outcome: 22:13 Discharge ordered by . tw4 22:30 Discharged to home via wheelchair, with family. jb4 22:30 Condition: stable 22:30 Discharge instructions given to patient, Instructed on discharge instructions, follow up and referral plans. medication usage, Demonstrated understanding of instructions, follow-up care, medications, Prescriptions given X 3. 22:31 Patient left the ED. jb4 Signatures: Dispatcher [employer] EDOK Ritchie Tidwell RN RN jb4 Alexx Martinez MD MD tw4 Corrections: (The following items were deleted from the chart) 22:51 22:30 Reassessment: Patient appears in no apparent distress at this time. Patient jb4 and/or family updated on plan of care and expected duration. Pain level reassessed. Patient is alert, oriented x 3, equal unlabored respirations, skin warm/dry/pink. PT verbalized understanding of d/c and follow up instructions. Ambulated to wheelchair with steady gait. Assisted to vehicle via wheelchair. D/c'ed home with family. jb4
--- NOTE | 2019-10-22 22:14 | EDPHYS ---
Physician Documentation [facility] Name: Cleopatra Gomez Age: 29 yrs Sex: Female : 1990 Arrival Date: 10/22/2019 Time: 19:54 Bed 15 Private MD: ED Physician Alexx Martinez HPI: 10/22 02:56 This 29 yrs old Female presents to ER via EMS with complaints of fall back tw4 pain. 02:56 Details of fall: The patient fell from an upright position, while standing. Onset: The tw4 symptoms/episode began/occurred 2 day(s) ago. Associated injuries: The patient sustained injury to the low back. Severity of symptoms: At their worst the symptoms were moderate, in the emergency department the symptoms are unchanged. The patient has not experienced similar symptoms in the past. 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 - Social history:: Smoking status: Patient denies any tobacco usage or history of. ROS: 10/22 02:56 Constitutional: Negative for fever, chills, and weight loss, Eyes: Negative for injury, tw4 pain, redness, and discharge, Cardiovascular: Negative for chest pain, palpitations, and edema, Respiratory: Negative for shortness of breath, cough, wheezing, and pleuritic chest pain, Abdomen/GI: Negative for abdominal pain, nausea, vomiting, diarrhea, and constipation, MS/Extremity: Negative for injury and deformity, Skin: Negative for injury, rash, and discoloration, Neuro: Negative for headache, weakness, numbness, tingling, and seizure. Back: Positive for injury or acute deformity, decreased range of motion, pain at rest, pain with movement. Exam: 02:56 Constitutional: This is a well developed, well nourished patient who is awake, alert, tw4 and in no acute distress. Chest/axilla: Normal chest wall appearance and motion. Nontender with no deformity. No lesions are appreciated. Cardiovascular: Regular rate and rhythm with a normal S1 and S2. No gallops, murmurs, or rubs. Normal PMI, no JVD. No pulse deficits. Respiratory: Lungs have equal breath sounds bilaterally, clear to auscultation and percussion. No rales, rhonchi or wheezes noted. No increased work of breathing, no retractions or nasal flaring. Abdomen/GI: Soft, non-tender, with normal bowel sounds. No distension or tympany. No guarding or rebound. No evidence of tenderness throughout. 02:56 Back: pain, ROM is normal, CVA tenderness, is absent. Vital Signs: 10/21 19:30 BP 116 / 79; Pulse 104; Resp 18; Temp 97.7(O); Pulse Ox 95% on R/A; Weight 105.23 kg jb4 (R); Height 4 ft. 11 in. (149.86 cm); Pain 10/10; 21:10 BP 93 / 79; Pulse 86; Resp 18; Pulse Ox 96% on R/A; jb4 22:30 BP 119 / 74; Pulse 84; Resp 16; Pulse Ox 98% on R/A; jb4 19:30 Body Mass Index 46.86 (105.23 kg, 149.86 cm) jb4 MDM: 19:56 Patient medically screened. tw4 10/22 02:58 Differential diagnosis: abrasion, closed head injury, contusion, fracture. Data tw4 reviewed: vital signs, nurses notes. Data reviewed: radiologic studies, CT scan. Data interpreted: Pulse oximetry: Interpretation: normal. Medication response: Toradol markedly relieved the patient's pain, [place]. Response to treatment: and as a result, I will discharge patient. Special discussion: I discussed with the patient/guardian in detail that at this point there is no indication for admission to the hospital. It is understood, however, that if the symptoms persist or worsen the patient needs to return immediately for re-evaluation. 10/21 20:05 Order name: CT Lumbar Spine Wo Con; Complete Time: 21:12 tw4 Administered Medications: 10/21 21:10 Drug: [place] 5 mg-325 mg 1 tabs {Note: Rass score 0.} Route: PO; jb4 21:50 Follow up: Response: No adverse reaction; Pain is decreased; RASS: Alert and Calm (0) [facility] 21:10 Drug: TORadol 60 mg Route: IM; Site: right gluteus; [facility] 21:50 Follow up: Response: No adverse reaction; Pain is decreased [facility] Disposition: 10/22/19 22:13 Discharged to Home. Impression: Wedge compression fracture of unspecified lumbar vertebra. - Condition is Stable. - Discharge Instructions: Vertebral Fracture, [id number]. - Prescriptions for Ibuprofen 800 mg Oral Tablet - take 1 tablet by ORAL route every 8 hours As needed take with food; 30 tablet. Tylenol- Codeine #3 300-30 mg Oral Tablet - take 2 tablet by ORAL route every 6 hours As needed; 6 tablet. Tramadol 50 mg Oral Tablet - take 1 tablet by ORAL route every 8 hours as needed; 12 tablet. - Medication Reconciliation Form, Thank You Letter, Antibiotic Education, Prescription Opioid Use form. - Follow up: Private Physician; When: Upon discharge from the Emergency Department; Reason: Recheck today's complaints, Re-evaluation by your physician. Follow up: Cain Chaparro MD; When: Upon discharge from the Emergency Department; Reason: Recheck today's complaints, Continuance of care, Re-evaluation by your physician. Follow up: Kale Velásquez MD; When: Upon discharge from the Emergency Department; Reason: Recheck today's complaints, Continuance of care, Re-evaluation by your physician. Follow up: Sanchez Basurto MD; When: Upon discharge from the Emergency Department; Reason: Recheck today's complaints, Continuance of care, Re-evaluation by your physician. - Problem is new. - Symptoms have improved. Signatures: Dispatcher [employer] EDMS Ritchie Tidwell RN RN jb4 Alexx Martinez MD MD tw4 Corrections: (The following items were deleted from the chart) 22:14 22:13 10/22/2019 22:13 Discharged to Home. Impression: Wedge compression fracture of tw4 unspecified lumbar vertebra. Condition is Stable. Forms are Medication Reconciliation Form, Thank You Letter, Antibiotic Education, Prescription Opioid Use. Follow up: Private Physician; When: Upon discharge from the Emergency Department; Reason: Recheck today's complaints, Re-evaluation by your physician. Problem is new. Symptoms have improved. tw4 22:31 22:14 10/22/2019 22:13 Discharged to Home. Impression: Wedge compression fracture of jb4 unspecified lumbar vertebra. Condition is Stable. Forms are Medication Reconciliation Form, Thank You Letter, Antibiotic Education, Prescription Opioid Use. Follow up: Private Physician; When: Upon discharge from the Emergency Department; Reason: Recheck today's complaints, Re-evaluation by your physician. Follow up: Dr. Cain Chaparro; When: Upon discharge from the Emergency Department; Reason: Recheck today's complaints, Continuance of care, Re-evaluation by your physician. Follow up: Kale Velásquez; When: Upon discharge from the Emergency Department; Reason: Recheck today's complaints, Continuance of care, Re-evaluation by your physician. Follow up: Sanchez Basurto; When: Upon discharge from the Emergency Department; Reason: Recheck today's complaints, Continuance of care, Re-evaluation by your physician. Problem is new. Symptoms have improved. tw4
[2019-10-22 22:36] VITALS: BP 93/79; O2SAT 96
== END 2019-10-22 22:31 | disposition home or self-care (01) ==
LOC: ER 19:43
DX: S32.000A Wedge compression fracture of unspecified lumbar vertebra, initial encounter for closed fracture (principal); W19.XXXA Unspecified fall, initial encounter; Y93.89 Activity, other specified; Y92.9 Unspecified place or not applicable; E11.9 Type 2 diabetes mellitus without complications
CPT/HCPCS: 72131; 96372; 99284

== ENCOUNTER 2021-12-22 08:56 | Emergency (ER) | payer OTHER ==
--- OUTSIDE RECORDS SUMMARY | 2021-12-22 08:59 | XMS REPORT | Continuity of Care Document ---
:1990 Author Organization [facility] t Address [address] [place] [address] Care Team Providers Name Role Phone Dov Garcia MD Primary Care Physician Doctor Unassigned, Name Attending Clinician Unavailable Jocelin CALDERON S Attending Clinician Martha MATTHEW Attending Clinician Unavailable Deann MONDRAGON Attending Clinician Unavailable Arthur ROSARIO Attending Clinician Unavailable Payers Payer Name Policy Type Policy Number Effective Date Expiration Date Martha [facility] [id number] 2018 00:00:00 Problems Condition Condition Condition Status Onset Resolution Last Treating Co mments Source Name Details Category Date Date Treatment Clinician Date Decreased Decreased Disease Active Uni vers range of range of 4-07 [place]y of motion [place] 00 Me dical Branch Painful Painful Disease Active 2020-07 Overview: Univ ers orthopaedi orthopaedi 0-11 Formattin ity of c hardware c hardware 00:00: g of this [place] 00 note Medical might be Branch different from the original. Added automatic ally from request for surgery [id number] Stiffness Stiffness Disease Active Uni vers of left of left 7-06 ity of elbow elbow 00:00: [place] joint joint 00 Medical Branch Left elbow Left elbow Disease Active U nivers pain pain 7-06 ity of 00:00: Medical Branch Decreased Decreased Disease Active Uni vers activities activities 7-06 it y of of daily of daily 00:00: [place] living living 00 Medical (ADL) (ADL) Branch Closed Closed Disease Active Univers nondisplac nondisplac 9-25 it y of ed ed 00:00: [place] fracture fracture 00 Medica l of fifth of fifth Branch metatarsal metatarsal bone of bone of right foot right foot with with routine routine healing healing Trauma Trauma Disease Active Univers 4-09 ity of 00:00: Medical Branch Closed Closed Disease Active Univers fracture fracture 4-09 ity of of distal of distal 00:[place] end of end of Medical right right Branch radius radius Morbid Morbid Disease Active Univers obesity obesity 4-09 ity of with body with body 00:00[place] mass index mass index 00 Me dical of 50 or of 50 or Branch higher higher Morbid Morbid Disease Active Univers obesity obesity 4-09 ity of with body with body 00:00[place] mass index mass index 00 Me dical of of Branch 40.0-49.9 40.0-49.9 Left leg Left leg Disease Active Unive rs pain pain 6-09 ity of 00:00: Medical Branch Right knee Right knee Disease Active 2014-07 U nivers pain pain 1-20 ity of 00:00: Medical Branch Right Right Disease Active 2014-07 Univers elbow pain elbow pain 1-20 it y of 00:00: Medical Branch Allergies, Adverse Reactions, Alerts Allergy Allergy Status Severity Reaction(s) Onset Inactive Treating Comm ents Source Name Type Date Date Clinician Metformi Propensi Active Other - See Bowl U nivers n ty to comments 1-06 movement ity of adverse 00:00: pains [place] reaction 00 Medical s Branch METFORMI DRUG Active Other-Cmnt Univ ers N INGREDI 1-06 ity of 00:00: Medical Branch [place] Propensi Active Shortness of 2020-07 Un evelin And ty to Breath 0-18 ity of Derivati adverse 00:00: [place] ves reaction 00 Medical s Branch CITRUS Drug Active SOB 2020-07 Univers AND Class 0-18 ity of DERIVATI 00:00: [place] VES 00 Medical Branch BANANA DRUG Active Diarrhea 2020-0 Univers INGREDI 03-27 ity of 00:00: [place] 00 Medical Branch BURCH Food Active Unknown-Cmnt 2020-0 Univ ers BEANS 03-27 ity of 00:00: [place] 00 Medical Branch TOMATO DRUG Active N/V 2020-0 Univers INGREDI 03-27 ity of 00:00: [place] 00 Medical Branch Banana Propensi Active Diarrhea 2020-0 Univer s ty to 03-27 ity of adverse 00:00: [place] reaction 00 Medical s Branch Burch Propensi Active Unknown - 2019-0 Unive rs Beans ty to See comments 03-27 ity of adverse 00:00: [place] reaction 00 Medical s Branch Tomato Propensi Active Nausea 2020-0 Univers ty to and/or 03-27 ity of adverse Vomiting 00:00: [place] reaction 00 Medical s Branch Social History Social Habit Start Date Stop Date Quantity Comments Source History of Cigarette Smoker Universi ty of tobacco use [place] [facility] History SDOH University o f Alcohol Frequency [facility] edical Branch History [facility] University o f Alcohol Std [place] Medical Drinks Branch History [facility] University o f Alcohol Binge [place] Medic al Branch Exposure to 2021-11-08 2021-11-18 Not sure University of SARS-CoV-2 00:00:00 12:21:00 [facility] (event) Branch Alcohol intake 2021-11-18 2021-11-18 0 /d University of 00:00:00 00:00:00 [facility] Tobacco use and 2017-09-20 2017-09-20 Never used Universit y of exposure 00:00:00 00:00:00 [facility] Tobacco Comment 2017-09-20 2017-09-20 Occasional Smoker Un iversity of 00:00:00 00:00:00 [facility] Alcohol Comment 2017-09-20 2017-09-20 Occasional Universit y of 00:00:00 00:00:00 [facility] Sex [birth year] Universit y of 00:00:00 00:00:00 [facility] Smoking Status Start Date Stop Date Source Current some day smoker 2017-09-20 00:00:00 Univ ersity [facility] [place] [facility] Medications Ordered Filled Start Stop Current Ordering Indication Dosage Frequency Signature Comments Components Source Medication Medication Date Date Medication? Clinician (SIG) Name Name meloxicam Yes [id number] 7.5mg Take 1 Univers 7.5 mg 5-13 tablet by ity of tablet 00:00: mouth [place] 00 daily. Medical Branch meloxicam Yes [id number] 7.5mg Take 1 Univers 7.5 mg 5-13 tablet by ity of tablet 00:00: mouth [place] 00 daily. Medical Branch meloxicam Yes [id number] 7.5mg Take 1 Univers 7.5 mg 5-12 tablet by ity of tablet 00:00: mouth [place] 00 daily. Medical Branch meloxicam 2021- No [id number] 7.5mg Take 1 Univers 7.5 mg 5-12 05-13 tablet by ity of tablet 00:00: 00:00 mouth [place] 00 :00 daily. Medical Branch meloxicam Yes [id number] 7.5mg Take 1 Univers 7.5 mg 5-05 tablet by ity of tablet 00:00: mouth [place] 00 daily. Medical Branch meloxicam Yes [id number] 7.5mg Take 1 Univers 7.5 mg 5-05 tablet by ity of tablet 00:00: mouth [place] 00 daily. Medical Branch meloxicam Yes [id number] 7.5mg Take 1 Univers 7.5 mg 5-05 tablet by ity of tablet 00:00: mouth [place] 00 daily. Medical Branch meloxicam 2021- No [id number] 7.5mg Take 1 Univers 7.5 mg 5-05 05-12 tablet by ity of tablet 00:00: 00:00 mouth [place] 00 :00 daily. Medical Branch meloxicam Yes [id number] 7.5mg Take 1 Univers 7.5 mg 5-03 tablet by ity of tablet 00:00: mouth [place] 00 daily. Medical Branch meloxicam 2021- No [id number] 7.5mg Take 1 Univers 7.5 mg 5-03 05-05 tablet by ity of tablet 00:00: 00:00 mouth [place] 00 :00 daily. Medical Branch meloxicam Yes [id number] 7.5mg Take 1 Univers 7.5 mg 5-02 tablet by ity of tablet 00:00: mouth [place] 00 daily. [facility] meloxicam 2021- No [id number] 7.5mg Take 1 Univers 7.5 mg 5-02 05-03 tablet by ity of tablet 00:00: 00:00 mouth [place] 00 :00 daily. [facility] Branch ibuprofen 2021- No 200mg Take 200 Un evelin 200 mg 4-29 04-29 mg by ity of tablet 08:55: 00:00 mouth. [place] 11 :00 [facility] meloxicam Yes [id number] 7.5mg Take 1 Univers 7.5 mg 4-29 tablet by ity of tablet 00:00: mouth [place] 00 daily. [facility] meloxicam Yes [id number] 7.5mg Take 1 Univers 7.5 mg 4-29 tablet by ity of tablet 00:00: mouth [place] 00 daily. [facility] meloxicam 2021- No [id number] 7.5mg Take 1 Univers 7.5 mg 4-29 05-02 tablet by ity of tablet 00:00: 00:00 mouth [place] 00 :00 daily. [facility] meloxicam 2021- No [id number] 7.5mg Take 1 Univers 7.5 mg 4-29 04-29 tablet by ity of tablet 00:00: 00:00 mouth [place] 00 :00 daily. [facility] levothyroxi 2020-07 Yes [id number] 50ug Take 1 Univers ne 50 mcg 2-30 tablet by ity o f tablet 00:00: mouth [place] 00 every Medical morning. Branch escitalopra 2020-07 Yes [id number] 5mg Take 1 Univers m oxalate 5 2-30 tablet by ity of mg tablet 00:00: mouth [place] 00 daily. [facility] Branch levothyroxi 2020-07 Yes [id number] 50ug Take 1 Univers ne 50 mcg 2-30 tablet by ity o f tablet 00:00: mouth [place] 00 every Medical morning. [place] escitalopra 2020-07 Yes [id number] 5mg Take 1 Univers m oxalate 5 2-30 tablet by ity of mg tablet 00:00: mouth [place] 00 daily. [facility] levothyroxi 2020-07 Yes [id number] 50ug Take 1 Univers ne 50 mcg 2-30 tablet by ity o f tablet 00:00: mouth [place] 00 every Medical morning. [place] escitalopra 2020-07 Yes [id number] 5mg Take 1 Univers m oxalate 5 2-30 tablet by ity of mg tablet 00:00: mouth [place] 00 daily. [facility] levothyroxi 2020-07 Yes [id number] 50ug Take 1 Univers ne 50 mcg 2-30 tablet by ity o f tablet 00:00: mouth [place] 00 every Medical morning. [place] escitalopra 2020-07 Yes [id number] 5mg Take 1 Univers m oxalate 5 2-30 tablet by ity of mg tablet 00:00: mouth [place] 00 daily. [facility] levothyroxi 2020-07 Yes [id number] 50ug Take 1 Univers ne 50 mcg 2-30 tablet by ity o f tablet 00:00: mouth [place] 00 every Medical morning. [place] escitalopra 2020-07 Yes [id number] 5mg Take 1 Univers m oxalate 5 2-30 tablet by ity of mg tablet 00:00: mouth [place] 00 daily. [facility] levothyroxi 2020-07 Yes [id number] 50ug Take 1 Univers ne 50 mcg 2-30 tablet by ity o f tablet 00:00: mouth [place] 00 every Medical morning. [place] escitalopra 2020-07 Yes [id number] 5mg Take 1 Univers m oxalate 5 2-30 tablet by ity of mg tablet 00:00: mouth [place] 00 daily. [facility] levothyroxi 2020-07 Yes [id number] 50ug Take 1 Univers ne 50 mcg 2-30 tablet by ity o f tablet 00:00: mouth [place] 00 every Medical morning. [place] escitalopra 2020-07 Yes [id number] 5mg Take 1 Univers m oxalate 5 2-30 tablet by ity of mg tablet 00:00: mouth [place] 00 daily. [facility] levothyroxi 2020-07 Yes [id number] 50ug Take 1 Univers ne 50 mcg 2-30 tablet by ity o f tablet 00:00: mouth [place] 00 every Medical morning. [place] escitalopra 2020-07 Yes [id number] 5mg Take 1 Univers m oxalate 5 2-30 tablet by ity of mg tablet 00:00: mouth [place] 00 daily. [facility] levothyroxi 2020-07 Yes [id number] 50ug Take 1 Univers ne 50 mcg 2-30 tablet by ity o f tablet 00:00: mouth [place] 00 every Medical morning. Branch escitalopra 2020-07 Yes [id number] 5mg Take 1 Univers m oxalate 5 2-30 tablet by ity of mg tablet 00:00: mouth [place] 00 daily. Medical Branch levothyroxi 2020-07 Yes [id number] 50ug Take 1 Univers ne 50 mcg 2-30 tablet by ity o f tablet 00:00: mouth [place] every Medical morning. Branch escitalopra 2020-07 Yes [id number] 5mg Take 1 Univers m oxalate 5 2-30 tablet by ity of mg tablet 00:00: mouth [place] 00 daily. Medical Branch OXcarbazepi 2020-0 Yes Univer s ne 150 mg 2-12 ity of tablet 00:00: [place] [address] Medical Branch OXcarbazepi 2020-0 Yes Univer s ne 150 mg 2-12 ity of tablet 00:00: [place] [address] Medical Branch OXcarbazepi 2020-0 Yes Univer s ne 150 mg 2-12 ity of tablet 00:00: [place] [address] Medical Branch OXcarbazepi 2020-0 Yes Univer s ne 150 mg 2-12 ity of tablet 00:00: [place] [address] Medical Branch OXcarbazepi 2020-0 Yes Univer s ne 150 mg 2-12 ity of tablet 00:00: [place] [address] Medical Branch OXcarbazepi 2020-0 Yes Univer s ne 150 mg 2-12 ity of tablet 00:00: [place] [address] Medical Branch OXcarbazepi 2020-0 Yes Univer s ne 150 mg 2-12 ity of tablet 00:00: [place] [address] Medical Branch OXcarbazepi 2020-0 Yes Univer s ne 150 mg 2-12 ity of tablet 00:00: [place] [address] Medical Branch OXcarbazepi 2020-0 Yes Univer s ne 150 mg 2-12 ity of tablet 00:00: [place] [address] Medical Branch OXcarbazepi 2020-0 Yes Univer s ne 150 mg 2-12 ity of tablet 00:00: [address] Immunizations Ordered Filled Immunization Date Status Comments [facility] e Immunization Name Name Td 2020-10-23 Completed [facility] 00:00:00 [facility] Td 2020-10-23 Completed University of 00:00:00 [facility] Td 2020-10-23 Completed University of 00:00:00 [facility] Branch Td 2020-10-23 Completed University of 00:00:00 [facility] Branch Td 2020-10-23 Completed University of 00:00:00 [facility] Td 2020-10-23 Completed University of 00:00:00 [facility] Td 2020-10-23 Completed University of 00:00:00 [facility] Td 2020-10-23 Completed University of 00:00:00 [facility] Td 2020-10-23 Completed University of 00:00:00 [facility] Td 2020-10-23 Completed University of 00:00:00 [facility] Influenza Virus 2016-10-29 Completed Universit y of Vaccine Quad IM 3+ 00:00:00 [facility] Influenza Virus 2016-10-29 Completed Universit y of Vaccine Quad IM 3+ 00:00:00 [facility] Influenza Virus 2016-10-29 Completed Universit y of Vaccine Quad IM 3+ 00:00:00 [facility] Influenza Virus 2016-10-29 Completed Universit y of Vaccine Quad IM 3+ 00:00:00 [facility] Influenza Virus 2016-10-29 Completed Universit y of Vaccine Quad IM 3+ 00:00:00 [facility] Influenza Virus 2016-10-29 Completed Universit y of Vaccine Quad IM 3+ 00:00:00 [facility] Influenza Virus 2016-10-29 Completed Universit y of Vaccine Quad IM 3+ 00:00:00 [facility] Influenza Virus 2016-10-29 Completed Universit y of Vaccine Quad IM 3+ 00:00:00 [facility] Influenza Virus 2016-10-29 Completed Universit y of Vaccine Quad IM 3+ 00:00:00 [facility] Influenza Virus 2016-10-29 Completed Universit y of Vaccine Quad IM 3+ 00:00:00 [facility] Vital Signs Vital Name Observation Time Observation Value Comments Source Body weight 2021-11-18 13:25:00 95.709 kg [facility] BMI 2021-11-18 13:25:00 42.62 kg/m2 [facility] Systolic blood 2021-11-18 13:25:00 111 mm[Hg] [facility] Diastolic blood 2021-11-18 13:25:00 57 mm[Hg] [facility] pressure [facility] Heart rate 2021-11-18 13:25:00 72 /min [facility] Body height 2021-11-18 13:25:00 149.9 cm [facility] Procedures Procedure Date / Time Performed Performing Clinician Sourc e REFERRAL- 2021-12-08 05:01:00 Doctor Unassigned, No Univer [facility] REQUEST/RESPONSE Name [facility] Encounters Start End Encounter Admission Attending Care Care Encounter Source Date/Time Date/Time Type Type Clinicians Facility Department ID 2021-12-08 2021-12-08 Outpatient [facility] [id number] Univers 15:15:00 15:15:00 [id number] [facility] 2021-12-08 2021-12-08 Orders Doctor MADELINE [id number] Univers 00:00:00 00:00:00 Only Unassigned, DOMINIC [id number] ity of [place] [facility] [id number] [place] [phone] [address] 2021-12-06 2021-12-06 Outpatient [facility] [id number] Univers 09:30:00 09:30:00 [id number] ity [facility] 2021-12-06 2021-12-06 Outpatient R [facility] [id number] Univers 09:30:00 09:30:00 ity [facility] 2021-12-01 2021-12-01 [place] [id number] Univers 00:00:00 00:00:00 [employer] [id number] it y of [place] [id number] [place] NIKKIE?BLEA [id number] [address] MEDICAL OFFICE BUILDING 2021-11-28 2021-11-28 [facility] [id number] Univers 00:00:00 00:00:00 [place] [facility] HE[facility] [id number] it y of [place] [id number] [place] NIKKIE?BLEA [phone] Me arnoldal SUZIE [address] [facility] OFFICE [facility] 2021-11-25 2021-11-25 [facility] [id number] Univers 00:00:00 00:00:00 [place] [facility] HE[facility] [id number] it y of [place] [id number] [place] as NIKKIE?BLEA [id number] Me valerie LARSEN [address] [facility] OFFICE [facility] 2021-11-24 2021-11-24 Ina [facility] [id number] Univers 00:00:00 00:00:00 [place] [facility] HEALTH [id number] it y of [place] [id number] [place] as NIKKIE?BLEA [phone] Nd valerie LARSEN [address] [facility] OFFICE [facility] 2021-11-23 2021-11-23 [facility] [id number] Univers 00:00:00 00:00:00 [place] [facility] HEALTH [id number] it y of [place] [id number] [place] as NIKKIE?BLEA [phone] Nd valerie LARSEN 198 [facility] OFFICE [facility] 2021-11-22 2021-11-22 [facility] [id number] Univers 00:00:00 00:00:00 [place] [facility] HEALTH [id number] it y of [place] [id number] [place] NIKKIE?BLEA [phone] Nd valerie LARSEN 198 [facility] OFFICE [facility] 2021-11-18 2021-11-18 [facility] [id number] Univers 08:35:00 23:59:00 PEPE ity of [facility] 2021-11-18 2021-11-18 Office [facility] [id number] Univers 09:15:00 09:30:00 Visit Pepe S HEALTH [id number] it y of [place] [id number] [place] NIKKIE?BLEA [phone] Nd valerie LARSEN 198 [facility] OFFICE BUILDING 2021-11-18 2021-11-18 [facility] [id number] Univers 00:00:00 00:00:00 [employer] [id number] [facility] [id number] [place] NIKKIE?BLEA [phone] Nd valerie [address] OFFICE BUILDING 2021-11-18 2021-11-18 [facility] [id number] Univers 00:00:00 00:00:00 [facility] [id number] it y of [place] [id number] [place] as NIKKIE?BLEA [phone] Nd valerie [address] OFFICE BUILDING 2021-11-15 2021-11-15 Outpatient Edith MONDRAGON [facility] [id number] [facility] 09:30:00 09:30:00 PERLA lebron [facility] 2021-02-18 2021-02-18 Outpatient [facility] [id number] Ovi 12:52:33 13:57:41 [facility] Results This patient has no known results.
--- NOTE | 2021-12-22 10:14 | RAD REPORT ---
EXAM DESCRIPTION: RAD - Foot Right 3 View - 12/22/2021 10:00 am CLINICAL HISTORY: PAIN COMPARISON: No comparisons FINDINGS/IMPRESSION: No acute fracture. No malalignment. No significant focal degenerative changes. Partially imaged intramedullary rosy in the tibia.
--- NOTE | 2021-12-22 10:19 | EDPHYS ---
Physician Documentation [facility] Name: Cleopatra Gomez Age: 31 yrs Sex: Female : 1990 Arrival Date: 12/22/2021 Time: 08:58 Bed 11 Private MD: MARK Physician Theo Mcdaniels HPI: 12/22 09:18 This 31 yrs old Female presents to ER via Ambulatory with complaints of Foot Pain. jh7 09:18 The patient presents with an injury, pain, that is acute. The complaints affect the jh7 right fourth toe and right third toe and right second toe and right foot. Onset: The symptoms/episode began/occurred 3 day(s) ago. Patient complains of right foot and toe pain after catching her foot on the door 3 days ago. She has a history of osteoporosis, and wants to ensure there are no fractures.. 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 - Social history:: Smoking status: Patient denies any tobacco usage or history of. Patient uses alcohol, occasionally. ROS: 09:18 Constitutional: Negative for fever, chills, and weight loss, ENT: Negative for injury, jh7 pain, and discharge, Neck: Negative for injury, pain, and swelling, Cardiovascular: Negative for chest pain, palpitations, and edema, Respiratory: Negative for shortness of breath, cough, wheezing, and pleuritic chest pain, Back: Negative for injury and pain, Skin: Negative for injury, rash, and discoloration, Neuro: Negative for headache, weakness, numbness, tingling, and seizure. 09:18 MS/extremity: Positive for injury or acute deformity, contusion, pain, swelling, tenderness, Negative for abrasion, laceration. 09:18 All other systems are negative. Exam: 09:18 Constitutional: This is a well developed, well nourished patient who is awake, alert, jh7 and in no acute distress. Neck: Trachea midline, no thyromegaly or masses palpated, and no cervical lymphadenopathy. Supple, full range of motion without nuchal rigidity, or vertebral point tenderness. No Meningismus. Cardiovascular: Regular rate and rhythm with a normal S1 and S2. No gallops, murmurs, or rubs. Normal PMI, no JVD. No pulse deficits. Respiratory: Lungs have equal breath sounds bilaterally, clear to auscultation and percussion. No rales, rhonchi or wheezes noted. No increased work of breathing, no retractions or nasal flaring. Back: No spinal tenderness. No costovertebral tenderness. Full range of motion. Skin: Warm, dry with normal turgor. Normal color with no rashes, no lesions, and no evidence of cellulitis. Neuro: Awake and alert, GCS 15, oriented to person, place, time, and situation. Motor strength 5/5 in all extremities. Sensory grossly intact. Normal gait. 09:18 Musculoskeletal/extremity: ROM: intact in all extremities, Circulation is intact in all extremities. Sensation intact. NVI, full range of motion of the right foot and toes. There is mild bruising of the fourth digit, and tenderness to palpation over metatarsal heads 2-4. Pain elicited with weightbearing. Vital Signs: 09:01 BP 119 / 86; Pulse 76; Resp 17; Temp 97.9(TE); Pulse Ox 100% on R/A; Weight 95.71 kg tw2 (R); Height 5 ft. 0 in. (152.40 cm); Pain 7/10; 09:01 Body Mass Index 41.21 (95.71 kg, 152.40 cm) tw2 MDM: 09:04 Patient medically screened. [facility] 10:21 Differential diagnosis: closed fracture, contusion. Data reviewed: vital signs, nurses [facility] notes, radiologic studies, plain films. Data interpreted: Pulse oximetry: is 100 %. Interpretation: normal. Counseling: I had a detailed discussion with the patient and/or guardian regarding: the historical points, exam findings, and any diagnostic results supporting the discharge/admit diagnosis, radiology results, to return to the emergency department if symptoms worsen or persist or if there are any questions or concerns that arise at home. 12/22 09:04 Order name: XRAY Foot RIGHT 3 View; Complete Time: 10:16 [facility] 12/22 10:18 Order name: Crutches; Complete Time: 10:37 7 12/22 10:18 Order name: Patrick Wrap; Complete Time: 10:37 7 Administered Medications: 10:37 Drug: Ketorolac 60 mg Route: IM; Site: right gluteus; ap3 11:02 Follow up: Response: No adverse reaction; Pain is decreased ap3 Disposition Summary: 12/22/21 10:19 Discharge Ordered Location: Home [facility] Problem: new [facility] Symptoms: are unchanged [facility] Condition: Stable [facility] Diagnosis - Contusion of right foot [facility] Followup: [facility] - With: Private Physician - When: 2 - 3 days - Reason: Recheck today's complaints Discharge Instructions: - Discharge Summary Sheet tw2 - Foot Contusion 7 - Crutch Use, Adult [facility] Forms: - Work release form tw2 - Medication Reconciliation Form 7 - Thank You Letter [facility] Prescriptions: - Naprosyn 500 mg Oral Tablet - take 1 tablet by ORAL route 2 times per day take with food; 30 tablet; Refills: [facility] 0, Product Selection Permitted Signatures: Dispatcher [employer] Mary Ferris RN RN tw2 Komal Alvarenga RN RN ap3 Joanie Rivera, SCHOOL LIBRARIAN SCHOOL LIBRARIAN [facility]
--- NOTE | 2021-12-22 10:19 | ER ---
Nurse's Notes [facility] Name: Cleopatra Gomez Age: 31 yrs Sex: Female : 1990 Arrival Date: 12/22/2021 Time: 08:58 Bed 11 Private MD: Diagnosis: Contusion of right foot Presentation: 12/22 09:01 Chief complaint: Patient states: i messed up my foot. my RIGHT foot. i want to make tw2 sure it isnt broken or fractured. i have osteoporosis. i feel like something isnt right. it happened a couple of days ago it caught on some furniture. Coronavirus screen: At this time, the client does not indicate any symptoms associated with coronavirus-19. Ebola Screen: Patient denies travel to an Ebola-affected area in the 21 days before illness onset. Initial Sepsis Screen: Does the patient meet any 2 criteria? No. Patient's initial sepsis screen is negative. Does the patient have a suspected source of infection? No. Patient's initial sepsis screen is negative. Risk Assessment: Do you want to hurt yourself or someone else? Patient reports no desire to harm self or others. Onset of symptoms was December 22, 2021. 09:01 Method Of Arrival: Ambulatory tw2 09:01 Acuity: MODESTO 4 tw2 Triage Assessment: 09:03 General: Appears in no apparent distress. obese, well groomed, Behavior is calm, tw2 cooperative, appropriate for age. Pain: Complains of pain in right foot. Neuro: Level of Consciousness is awake, alert, obeys commands, Oriented to person, place, time, situation. 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 - Social history:: Smoking status: Patient denies any tobacco usage or history of. Patient uses alcohol, occasionally. Screenin:11 Abuse screen: Denies threats or abuse. Nutritional screening: No deficits noted. ap3 Tuberculosis screening: No symptoms or risk factors identified. Fall Risk Fall in past 12 months (25 points). No secondary diagnosis (0 pts). No IV (0 pts). Ambulatory Aid- None/Bed Rest/Nurse Assist (0 pts). Gait- Normal/Bed Rest/Wheelchair (0 pts) Mental Status- Oriented to own ability (0 pts). Total Allen Fall Scale indicates Low Risk Score (25-44 pts). Fall prevention measures have been instituted. Side Rails Up X 2 Placed close to Nursing Station Frequent Obs/Assesments occuring As available Patient and Family Educated on Fall Prevention Program and strategies. Assessment: 09:13 General: Appears in no apparent distress. comfortable, Behavior is calm, cooperative, ap3 appropriate for age. Pain: Complains of pain in lateral aspect of right toes, right second toe, right third toe and right fourth toe Pain began suddenly, 2-3 days ago. Neuro: Level of Consciousness is awake, alert, obeys commands, Oriented to person, place, time, situation, Gait is steady, Speech is normal. Cardiovascular: Patient's skin is warm and dry. Respiratory: Airway is patent Respiratory effort is even, unlabored. Derm: Bruising that is dark purple, on lateral aspect of right toes and right fourth toe. Musculoskeletal: Swelling present in lateral aspect of right toes, right fourth toe and Right fourth toenail. 09:48 General: xray observed at the bedside. ap3 Vital Signs: 09:01 BP 119 / 86; Pulse 76; Resp 17; Temp 97.9(TE); Pulse Ox 100% on R/A; Weight 95.71 kg tw2 (R); Height 5 ft. 0 in. (152.40 cm); Pain 710; 09:01 Body Mass Index 41.21 (95.71 kg, 152.40 cm) tw2 ED Course: 08:58 Patient arrived in ED. bp1 08:59 Jo[facility] Rivera FNP [facility] jh7 08:59 Theo Mcdaniels MD is Attending Physician. jh7 09:03 Triage completed. tw2 09:04 Arm band placed on. tw2 09:11 Komal Alvaregna, RN is Primary Nurse. ap3 09:12 Patient has correct armband on for positive identification. Bed in low position. Call ap3 light in reach. Pulse ox on. NIBP on. Door closed. Noise minimized. 09:12 No provider procedures requiring assistance completed. Patient did not have IV access ap3 during this emergency room visit. 10:01 XRAY Foot RIGHT 3 View In Process Unspecified. EDMS Administered Medications: 10:37 Drug: Ketorolac 60 mg Route: IM; Site: right gluteus; ap3 11:02 Follow up: Response: No adverse reaction; Pain is decreased ap3 Medication: 09:12 VIS not applicable for this client. ap3 Outcome: 10:19 Discharge ordered by MD. barone 11:02 Patient left the ED. ap3 Signatures: Dispatcher [employer] EDMS Mary Montano RN RN tw2 Komal Alvarenga RN RN ap3 Tonya Olivera Jennifer, FNP FNP Chitra
[2021-12-22] MEDS ORDERED: KETOROLAC 30 MG/ML INJ ONE (10:36)
[2021-12-22 11:26] VITALS: BP 119/86; TEMP 97.9; O2SAT 100
== END 2021-12-22 11:02 | disposition home or self-care (01) ==
LOC: ER 08:56
DX: S90.31XA Contusion of right foot, initial encounter (principal); E11.9 Type 2 diabetes mellitus without complications
CPT/HCPCS: 96372; 99283

== ENCOUNTER 2023-07-03 08:45 | Emergency (ER) | payer OTHER ==
--- NOTE | 2023-07-03 09:32 | RAD REPORT ---
EXAM DESCRIPTION: RAD - Foot Right 3 View - 07/03/2023 9:15 am CLINICAL HISTORY: PAIN COMPARISON: Foot Right 3 View dated 12/22/2021 FINDINGS: The bones are demineralized mildly. Hardware is noted distal tibia. Lucency is seen at the base of the fifth metatarsal with adjacent soft tissue swelling, compatible with fracture.
--- NOTE | 2023-07-03 09:35 | EDPHYS ---
Physician Documentation [facility] Name: Cleopatra Gomez Age: 33 yrs Sex: Female : 1990 Arrival Date: 07/03/2023 Time: 08:45 Bed Treatment Private MD: ED Physician Nick Banuelos HPI: 07/03 09:03 This 33 yrs old Female presents to ER via Unassigned with complaints of Foot Injury. ms3 09:03 33-year-old female with past medical history of diabetes, hypothyroidism, osteogenesis ms3 imperfecta presents to the emergency department for right foot pain status post tripping over a tree branch 2 days prior to arrival. Patient states her pain is a 7/10 located in her right lateral foot. Patient states the pain is worse with walking. Patient denies alleviating factors. Historical: - Allergies: 09:06 No Known Allergies; hb - Home Meds: 09:06 anxiety medication [Active]; levothyroxine oral [Active]; hb - PMHx: 09:06 Hypothyroidism; Diabetes - NIDDM; Osteogenisis Imperfecta; hb ROS: 09:03 Constitutional: Negative for fever, and chills. Neck: Negative for injury, pain, and ms3 swelling, Cardiovascular: Negative for chest pain, and palpitations. Respiratory: Negative for shortness of breath, cough, wheezing, and pleuritic chest pain, Abdomen/GI: Negative for abdominal pain, nausea, vomiting, diarrhea, and constipation, 09:03 MS/extremity: Positive for pain, of the Right foot, Exam: 09:03 Constitutional: This is a well developed, well nourished patient who is awake, alert, ms3 and in no acute distress. Head/Face: Normocephalic, atraumatic. Neck: Trachea midline, no cervical lymphadenopathy. Supple, full range of motion without nuchal rigidity, or vertebral point tenderness. No Meningismus. Chest/axilla: Normal chest wall appearance and motion. Nontender with no deformity. Cardiovascular: Regular rate and rhythm with a normal S1 and S2. No gallops, murmurs, or rubs. Normal PMI, no JVD. No pulse deficits. Respiratory: Lungs have equal breath sounds bilaterally, clear to auscultation and percussion. No rales, rhonchi or wheezes noted. No increased work of breathing, no retractions or nasal flaring. Abdomen/GI: Soft, non-tender, with normal bowel sounds. No distension or tympany. No guarding or rebound. No evidence of tenderness throughout. Skin: Warm, dry with normal turgor. Normal color with no rashes, no lesions, and no evidence of cellulitis. 09:03 Musculoskeletal/extremity: Extremities: noted in the right foot: pain, swelling, tenderness, Vital Signs: 09:04 BP 141 / 94; Pulse 88; Resp 16; Temp 97.5(TE); Pulse Ox 100% on R/A; Weight 97.07 kg; hb Height 4 ft. 11 in. ; Pain 7/10; 09:04 Body Mass Index 43.22 (97.07 kg, 149.86 cm) hb 09:04 Pain Scale: Adult hb MDM: 09:03 Differential diagnosis: fracture, sprain. ms3 09:17 Data reviewed: vital signs, nurses notes, radiologic studies, plain films. Independent ms3 interpretation of the following test(s) in the Emergency Department X-Ray: My interpretation is Right foot x-ray image reviewed by me reveals base of 5th metatarsal fracture. Care significantly affected by the following chronic conditions: Diabetes, Osteogenesis Imperfecta. Counseling: I had a detailed discussion with the patient and/or guardian regarding the historical points, exam findings, and any diagnostic results supporting the discharge/admit diagnosis, radiology results, the need for outpatient follow up, to return to the emergency department if symptoms worsen or persist or if there are any questions or concerns that arise at home. ED course: Discussed x-ray findings with patient. Patient to follow-up with Dr. Kellogg in 2 to 3 days. Patient understands and agrees with plan. All questions were answered. Return precautions discussed include worsening symptoms, or any other concerns. 09:34 Patient medically screened. ms3 07/03 09:03 Order name: Foot Right 3 View XRAY; Complete Time: 09:35 ms3 07/03 09:22 Order name: Walking boot; Complete Time: :23 ms3 07/03 09:22 Order name: Crutches; Complete Time: 10:23 ms3 Administered Medications: No medications were administered Disposition Summary: 07/03/23 09:35 Discharge Ordered Notes: Location: Home ms3 Condition: Stable ms3 Diagnosis - Fracture of fifth metatarsal bone ms3 - Pain in right foot ms3 Followup: ms3 - With: Antonio Kellogg DPM - When: 2 - 3 days - Reason: Recheck today's complaints Discharge Instructions: - Discharge Summary Sheet ms3 - Metatarsal Fracture ms3 - Musculoskeletal Pain ms3 Forms: - Medication Reconciliation Form ms3 - Thank You Letter ms3 - Antibiotic Education ms3 - Prescription Opioid Use ms3 - Patient Portal Instructions ms3 - Leadership Thank You Letter ms3 Signatures: Dispatcher [employer] Swati Ordonez, RN RN Nick Bosch, DO ms3
--- NOTE | 2023-07-03 09:35 | ER ---
Nurse's Notes [facility] Name: Cleopatra Gomez Age: 33 yrs Sex: Female : 1990 Arrival Date: 07/03/2023 Time: 08:45 Bed Treatment Private MD: Diagnosis: Fracture of fifth metatarsal bone;Pain in right foot Presentation: 07/03 09:04 Chief complaint: Tripped over tree branch 2 days ago, c/o right foot pain 01/29. hb Coronavirus screen: At this time, the client does not indicate any symptoms associated with coronavirus-19. Ebola Screen: No symptoms or risks identified at this time. Initial Sepsis Screen: Does the patient meet any 2 criteria? No. Patient's initial sepsis screen is negative. Does the patient have a suspected source of infection? No. Patient's initial sepsis screen is negative. Risk Assessment: Do you want to hurt yourself or someone else? Patient reports no desire to harm self or others. Onset of symptoms was July 01, 2023. 09:04 Method Of Arrival: Ambulatory hb 09:04 Acuity: MODESTO 4 hb Historical: - Allergies: 09:06 No Known Allergies; hb - Home Meds: 09:06 anxiety medication [Active]; levothyroxine oral [Active]; hb - PMHx: 09:06 Hypothyroidism; Diabetes - NIDDM; Osteogenisis Imperfecta; hb Assessment: 09:05 General: Appears in no apparent distress. Behavior is calm, cooperative. Pain: Pain hb currently is 7 out of 10 on a pain scale. Neuro: Level of Consciousness is awake, alert, obeys commands, Oriented to person, place, time, situation. Cardiovascular: Patient's skin is warm and dry. Respiratory: Respiratory effort is even, unlabored, Respiratory pattern is regular, symmetrical. GI: No signs and/or symptoms were reported involving the gastrointestinal system. : No signs and/or symptoms were reported regarding the genitourinary system. EENT: No signs and/or symptoms were reported regarding the EENT system. Derm: Skin is pink, warm \T\ dry. Musculoskeletal: Reports foot pain. Vital Signs: 09:04 BP 141 / 94; Pulse 88; Resp 16; Temp 97.5(TE); Pulse Ox 100% on R/A; Weight 97.07 kg; hb Height 4 ft. 11 in. ; Pain 01/29; 09:04 Body Mass Index 43.22 (97.07 kg, 149.86 cm) hb 09:04 Pain Scale: Adult hb ED Course: 08:46 Patient arrived in ED. rg4 08:48 Nick Banuelos DO is Attending Physician. ms3 09:06 Triage completed. hb 09:16 Foot Right 3 View XRAY In Process Unspecified. EDMS 09:35 Antonio Kellogg DPM is Referral Physician. ms3 10:24 Arm band placed on. hb Administered Medications: No medications were administered Outcome: 09:35 Discharge ordered by MD. ms3 10:24 Patient left the ED. hb Signatures: Dispatcher [employer] EDMS Swati Garcia RN RN Codi Bettencourt rg4 Nick Banuelos DO DO ms3
[2023-07-03 10:28] VITALS: TEMP 97.5
[2023-07-03 10:29] VITALS: BP 141/94; O2SAT 100
== END 2023-07-03 10:24 | disposition home or self-care (01) ==
LOC: ER 08:45
DX: S92.351A Displaced fracture of fifth metatarsal bone, right foot, initial encounter for closed fracture (principal)
CPT/HCPCS: 99281

== ENCOUNTER 2024-05-04 12:09 | Emergency (ER) | payer OTHER ==
--- NOTE | 2024-05-04 12:53 | RAD REPORT ---
Exam:Ankle Left 3 View HISTORY: left ankle pain FINDINGS: Mildly to moderately displaced oblique fracture distal fibula. Borderline widening of the medial clear space equivocal for ligamentous injury.
[2024-05-04] MEDS ORDERED: KETOROLAC 30 MG/ML INJ ONE (13:00)
[2024-05-04] MEDS ORDERED: HYDROCODONE/APAP 5/325 MG TAB ONE (13:00)
[2024-05-04] MEDS ORDERED: methocarbamoL 500 MG TAB ONE (13:00)
--- NOTE | 2024-05-04 14:09 | EDPHYS ---
Physician Documentation [facility] Name: Cleopatra Gomez Age: 34 yrs Sex: Female : 1990 Arrival Date: 05/04/2024 Time: 12:09 Bed 15 Private MD: ED Physician José Randle HPI: 05/04 12:38 This 34 yrs old Female presents to ER via EMS with complaints of Ankle Injury.ec2 12:38 Patient arrives today for evaluation of a left ankle injury. Patient reports that she ec2 twisted her left ankle while walking and stepped in a pothole. No falls injuries or trauma.. Historical: - Allergies: 12:20 No Known Allergies; cm10 - PMHx: 12:20 Diabetes - NIDDM; Hypothyroidism; Osteogenisis Imperfecta; cm10 - Immunization history:: Adult Immunizations up to date. - Infectious Disease History:: Denies. - Social history:: Smoking status: Patient reports the use of cigarette tobacco products, denies chronic smoking, but will smoke occasionally, Reported history of juuling and/or vaping. ROS: 12:38 Constitutional: as per hpi ec2 Exam: 12:38 Constitutional: GEN: NAD Head: atraumatic Eyes: EOMI Ears: External ears are ec2 normal. CV: regular rate LUNGS: no respiratory distress ABD: non-distended SKIN: no evidence of rashes MSK: Left medial and lateral malleolus with TTP, trace amount of swelling, intact distal neurovascular status. Vital Signs: 12:18 BP 114 / 67; Pulse 108; Resp 18; Temp 97.5; Pulse Ox 100% on R/A; Weight 99.79 kg; cm10 Height 4 ft. 11 in. ; Pain 8/10; 12:18 Body Mass Index 44.43 (99.79 kg, 149.86 cm) cm10 12:18 Pain Scale: Adult cm10 MDM: 12:38 Data reviewed: vital signs. ED course: Patient arrives today for evaluation of a left ec2 ankle injury. Examination remarkable for ankle findings as above. Will obtain radiograph. Differential includes ankle sprain, ankle fracture.. 12:58 ED course: Ankle x-ray independently reviewed and interpreted by me, shows distal ec2 fibula fracture with mild displacement. Ordered for posterior short leg along with stirrups. . 14:08 ED course: Posterior short leg splint placed without issue, will have the patient ec2 follow-up with orthopedic surgery. Discharge home. Return precautions given. 14:09 Patient medically screened. ec2 05/04 12:27 Order name: Ankle Left 3 View XRAY; Complete Time: 12:58 ec2 05/04 12:40 Order name: Short Leg Splint; Complete Time: 14:10 ec2 05/04 12:40 Order name: Misc. Order: short leg splint w/ stirrups; Complete Time: 14:10 ec2 05/04 12:43 Order name: Crutches; Complete Time: 14:10 ec2 05/04 12:43 Order name: Crutch Training; Complete Time: 14:10 ec2 Administered Medications: 12:40 CANCELLED (Physician Discretion): [id number] mg PO once ec2 13:04 Drug: Ketorolac IM 30 mg IM once Route: IM; Site: left vastus lateralis; cm10 14:35 Follow up: Response: No adverse reaction cm10 13:04 Drug: HYDROcodone-acetaminophen PO 5 mg-325 mg 2 tabs PO once Route: PO; cm10 14:34 Follow up: Response: No adverse reaction cm10 13:05 Drug: Methocarbamol PO 500 mg PO once Route: PO; cm10 14:35 Follow up: Response: No adverse reaction cm10 Disposition Summary: 05/04/24 14:09 Discharge Ordered Notes: Location: Home ec2 Condition: Stable ec2 Diagnosis - Nondisplaced fracture of lateral malleolus of left fibula ec2 Followup: ec2 - With: Private Physician - When: - Reason: Re-evaluation by your physician Followup: ec2 - With: Cain Chaparro MD - When: - Reason: Recheck today's complaints Discharge Instructions: - Discharge Summary Sheet ec2 - Nondisplaced Fibular Ankle Fracture Treated With Immobilization ec2 Forms: - Medication Reconciliation Form ec2 - Antibiotic Education ec2 - Prescription Opioid Use ec2 - Patient Portal Instructions ec2 - Leadership Thank You Letter ec2 Prescriptions: - acetaminophen-codeine 300-30 mg Oral tablet - take 1 tablet ORAL route every 4 hours as needed for pain; 15 tablet; Refills: ec2 0, Product Selection Permitted Signatures: Dispatcher [employer] Sharda Chicas RN RN cm10 José Randle MD MD ec2 Corrections: (The following items were deleted from the chart) 12:27 Ankle Left 3 View+[email or web address] ordered. EDMS EDMS : 12:30 Acetaminophen PO 1000 mg PO once ordered. ec2 ec2
--- NOTE | 2024-05-04 14:09 | ER ---
Nurse's Notes [facility] Name: Cleopatra Gomez Age: 34 yrs Sex: Female : 1990 Arrival Date: 05/04/2024 Time: 12:09 Bed 15 Private MD: Diagnosis: Nondisplaced fracture of lateral malleolus of left fibula Presentation: 05/04 12:18 Chief complaint: EMS states: Called to patients home due to patient tripping yesterday cm10 and hurting her left ankle. Pt states that the pain radiates to left knee. Coronavirus screen: Client denies travel out of the [place] in the last 14 days. Ebola Screen: Patient denies travel to an Ebola-affected area in the 21 days before illness onset. No symptoms or risks identified at this time. Initial Sepsis Screen: Does the patient meet any 2 criteria? HR > 90 bpm. Does the patient have a suspected source of infection? No. Patient's initial sepsis screen is negative. Risk Assessment: Do you want to hurt yourself or someone else? Patient reports no desire to harm self or others. Onset of symptoms was May 03, 2024. 12:18 Method Of Arrival: EMS: [facility] cm10 12:18 Acuity: [place] 4 cm10 Triage Assessment: 12:21 General: Appears in no apparent distress. comfortable, Behavior is calm, cooperative. cm10 Pain: Complains of pain in Left ankle Pain radiates to left knee Pain currently is 8 out of 10 on a pain scale. Neuro: No deficits noted. Level of Consciousness is awake, alert, obeys commands, Oriented to person, place, time, situation, Appropriate for age. Respiratory: No deficits noted. Airway is patent Respiratory effort is even, unlabored, Respiratory pattern is regular, symmetrical. Musculoskeletal: Reports pain in Left ankle. Historical: - Allergies: 12:20 No Known Allergies; cm10 - PMHx: 12:20 Diabetes - NIDDM; Hypothyroidism; Osteogenisis Imperfecta; cm10 - Immunization history:: Adult Immunizations up to date. - Infectious Disease History:: Denies. - Social history:: Smoking status: Patient reports the use of cigarette tobacco products, denies chronic smoking, but will smoke occasionally, Reported history of juuling and/or vaping. Screenin:22 [facility] ED Fall Risk Assessment (Adult) History of falling in the last 3 months, cm10 including since admission Yes- single mechanical fall (1 pt) Confusion or Disorientation No (0 pts) Intoxicated or Sedated No (0 pts) Impaired Gait No (0 pts) Mobility Assist Device Used No (0 pt) Altered Elimination No (0 pt) Score/Fall Risk Level 0 - 2 = Low Risk Oriented to surroundings, Maintained a safe environment, Hourly rounding (assess needs \T\ fall precautionary measures) done. Abuse screen: Denies threats or abuse. Denies injuries from another. Nutritional screening: No deficits noted. Tuberculosis screening: No symptoms or risk factors identified. Vital Signs: 12:18 BP 114 / 67; Pulse 108; Resp 18; Temp 97.5; Pulse Ox 100% on R/A; Weight 99.79 kg; cm10 Height 4 ft. 11 in. ; Pain 8/10; 12:18 Body Mass Index 44.43 (99.79 kg, 149.86 cm) cm10 12:18 Pain Scale: Adult cm10 ED Course: 12:12 Patient arrived in ED. cm10 12:12 José Randle MD is Attending Physician. ec2 12:20 Triage completed. cm10 12:22 Sharda Mendez, MONA is Primary Nurse. cm10 12:22 Arm band placed on Patient placed in an exam room, on pulse oximetry. cm10 12:23 Patient has correct armband on for positive identification. Bed in low position. Call cm10 light in reach. Side rails up X2. Provided Education on: ER process and procedures.. 12:48 Ankle Left 3 View XRAY In Process Unspecified. EDMS 14:09 Cain Chaparro MD is Referral Physician. ec2 14:10 Orthoglass splint: Posterior short lleg splint applied on left leg. stirrup splint em1 applied on left leg. 14:28 No provider procedures requiring assistance completed. Patient did not have IV access cm10 during this emergency room visit. Crutch training done. Administered Medications: 12:40 CANCELLED (Physician Discretion): [id number] mg PO once ec2 13:04 Drug: Ketorolac IM 30 mg IM once Route: IM; Site: left vastus lateralis; cm10 14:35 Follow up: Response: No adverse reaction cm10 13:04 Drug: HYDROcodone-acetaminophen PO 5 mg-325 mg 2 tabs PO once Route: PO; cm10 14:34 Follow up: Response: No adverse reaction cm10 13:05 Drug: Methocarbamol PO 500 mg PO once Route: PO; cm10 14:35 Follow up: Response: No adverse reaction cm10 Medication: 12:22 VIS not applicable for this client. cm10 Outcome: 14:09 Discharge ordered by . ec2 14:34 Discharged to home via wheelchair, with crutches, cm10 14:34 Discharged to home Pt waiting for ride in [employer]. 14:34 Condition: good 14:34 Discharge instructions given to patient, Instructed on discharge instructions, follow up and referral plans. medication usage, crutch walking, Demonstrated understanding of instructions, follow-up care, medications, crutch walking, splint care, Prescriptions given X 1, 14:34 Patient left the ED. cm10 Signatures: Dispatcher [employer] em1 Sharda Mendez RN RN cm10 José Randle MD MD ec2
[2024-05-04 15:00] VITALS: BP 114/67; TEMP 97.5; O2SAT 100
== END 2024-05-04 14:34 | disposition home or self-care (01) ==
LOC: ER 12:09
PROC: 2W3RX1Z Immobilization of Left Lower Leg using Splint (ICD-10-PCS; principal; 2024-05-04)
DX: S82.65XA Nondisplaced fracture of lateral malleolus of left fibula, initial encounter for closed fracture (principal)